=== PATIENT | female | born 1975 | race African-American/Black ===

== ENCOUNTER → 2019-02-28 | Day surgery (SDC) | payer OTHER ==
--- NOTE | 2019-02-26 16:09 | Diagnostic Imaging Report ---
EXAMINATION: PA and lateral views of the chest. COMPARISON: None CLINICAL HISTORY: Preoperative study for toe surgery DISCUSSION: Lines/tubes: None. Lungs: The lungs are well inflated and clear. There is no evidence of pneumonia or pulmonary edema. Pleura: There is no pleural effusion or pneumothorax. Heart and mediastinum: The cardiomediastinal silhouette is normal. Bones and soft tissues: No acute bony abnormalities. Mild scoliotic curvature of the thoracolumbar spine. IMPRESSION: No acute cardiopulmonary abnormalities. Signed by: Dr. Cedrick Borrego M.D. on 02/26/2019 4:06 PM
[~2019-02-28] MED LIST: ANTIBIOTIC UNKNOWN PO; BUPIVACAINE HCL 0.5% INJ 30 ML VIAL INJ ONE; CEFAZOLIN SOD 1 GM/NS 50ML 50 ML IV ONE; DEXAMETHASONE SOD PHOS INJ 4 MG/ML VIAL ONE; FENTANYL CITRATE/PF 100MCG/2 ML INJ ONE; LATUDA40 MG PO; LIDOCAINE HCL 2% LOCAL INJ 5 ML SDV VIAL INJ ONE; MIDAZOLAM HCL 2 MG/2 ML VIAL ONE; NAPROXEN250 MG PO; ONDANSETRON HCL INJ 2MG/ML 2ML 2 MG/ML VIAL ONE; PROPOFOL IV EMULSION 10 MG/ML 20 ML VIAL ONE; PROZAC20 MG PO; SEVOFLURANE INHAL SOLN 250 ML PEN BTL ONE
--- OUTSIDE RECORDS SUMMARY | 2019-02-28 05:09 | XMS REPORT | Clinical Summary ---
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 hepatic coma (HCC), 19 weeks gestation of , Bipolar affective disorder, remission status unspecified (HCC), Immunity status testing, Cancer screening, Smoking Active VITS #93/IRON Take by 0 FUM/FA ( FORMULA mouth. ORAL)Indications: Chronic hepatitis C without hepatic coma (HCC), 19 weeks gestation of , Bipolar affective disorder, remission status unspecified (HCC), Immunity status testing, Cancer screening, Smoking Active Problems Problem Noted Date Screening for cancer 11/01/2017 Hepatitis C Overview: Diagnosed in 2017 Overview: 19 weeks Bipolar affective disorder Smoking Comments Yes Encounters Care Team Description Date Type Specialty Pineda Payan NP Chronic hepatitis C without hepatic coma (HCC) (Primary Dx) 07/31/2018 Orders Only Hepatology after 02/27/2018 Family History Medical History Relation Name Comments Unremarkable Father Diabetes Maternal Grandmother Unremarkable Mother Relation Name Status Comments Father Maternal Grandmother Mother Social History Date Tobacco Use Types Packs/Day Years Used Current Every Day Smoker Cigarettes Smokeless Tobacco: Current User Tobacco Cessation: Ready to Quit: Yes; Counseling Given: Yes Comments: She reports that she started smoking at the age of 24, currently, she smokes 5 cigarettes daily Alcohol Use Drinks/Week oz/Week Comments No Comments Yes Sex Assigned at Date Recorded Not on file Industry Job Start Date Occupation Not on file Not on file Not on file Travel End Travel History Travel Start No recent travel history available. Last Filed Vital Signs Not on file Plan of Treatment Health Maintenance Due Date Last Done Comments INFLUENZA VACCINE 06/05/2018 Results Not on fileafter 02/27/2018 Insurance Payer Benefit Subscriber ID Type Phone Address Plan / Group MEDICAID - MEDICAID [facility] xxxxxxxxx Medicaid CARE COMM STAR Contracted PLAN
--- OUTSIDE RECORDS SUMMARY | 2019-02-28 05:09 | XMS REPORT | Clinical Summary ---
Author Author [facility] Organization [facility] Address Unknown Phone Unavailable Care Team Providers Care Nuclear Medicine Tech Name Role Phone Dianelys Goldsmith MD PCP Allergies No Known Allergies Medications End Date Status Medication Sig Dispensed Refills Start Date Active lurasidone (LATUDA) 20 mg Take one 30 tablet 2 Tab tabletIndications: tablet by 7 Bipolar 1 disorder mouth at dinner time with food.. Active SUMAtriptan (IMITREX) 50 Take 1 tablet 30 tablet 0 mg tabletIndications: by mouth at 9 Migraine without status onset of migrainosus, not headache. intractable, unspecified Repeat after migraine type 2 hours if needed. Maximum 200mg/24 hours.. Active cyclobenzaprine Take 1 tablet 30 tablet 0 (FLEXERIL) 10 mg by mouth 3 9 tabletIndications: Acute times daily right-sided low back pain as needed for without sciatica Muscle Spasms. Active FLUoxetine (PROZAC) 20 mg Take 61 mg by 0 capsule mouth daily. Active nicotine (NICODERM CQ) 14 Apply 1 Patch 28 Patch 0 mg/24 hr to skin as 9 patchIndications: Tobacco directed use disorder every 24 hours. Active fluticasone propionate Use 1 Hepler 16 g 1 (FLONASE ALLERGY RELIEF) in each 9 50 mcg/actuation nasal nostril sprayIndications: daily. Allergic rhinitis due to other allergic trigger, unspecified seasonality Active ibuprofen (MOTRIN) 600 mg Take 1 tablet 30 tablet 0 tabletIndications: Toe by mouth 9 deformity, left every 8 hours as needed for Pain. 09/15/2018 metroNIDAZOLE (FLAGYL) Take 1 tablet 14 tablet 0 500 mg tabletIndications: by mouth 2 9 Vaginal discharge times daily for 7 days. 01/24/2019 Discontinued triamcinolone (KENALOG) Apply to 80 g 0 0.025 % affected area 9 ointmentIndications: 2 times Dermatitis daily. 09/15/2018 benzonatate (TESSALON Take 1 20 capsule 0 PERLES) 100 mg capsule by 9 capsuleIndications: Acute mouth 3 times URI daily as needed for up to 7 days for Cough. 01/11/2019 Discontinued amitriptyline (ELAVIL) 10 Take 1 tablet 30 tablet 1 mg tabletIndications: by mouth at 9 Migraine without status bedtime migrainosus, not nightly. intractable, unspecified migraine type 02/16/2019 Discontinued ibuprofen (MOTRIN) 600 mg Take 1 tablet 30 tablet 0 tabletIndications: Acute by mouth 9 right-sided low back pain every 8 hours without sciatica as needed for Pain. 01/24/2019 Discontinued amitriptyline (ELAVIL) 10 Take 1 tablet 60 tablet 1 mg tabletIndications: by mouth at 9 Migraine without status bedtime migrainosus, not nightly. intractable, unspecified migraine type 02/15/2019 nitrofurantoin Take 1 14 capsule 0 (MACRODANTIN) 100 mg capsule by 9 capsuleIndications: Acute mouth 2 times cystitis without daily for 7 hematuria days. Active Problems Problem Noted Date Chronic hepatitis C without hepatic coma 02/08/2019 Tinea pedis, right 09/26/2016 Somnolence 11/26/2015 Homelessness 02/07/2015 Overview: Resident at [facility] BMI 29.0-29.9,adult 02/07/2015 Overview: Counseled on diet and encouraged weight management and adding exercise to daily activities as tolerated. Depression screening 02/07/2015 Overview: PHQ9-3, denies suicidal and homicidal ideations Bipolar 1 disorder 01/13/2015 Acne 01/08/2015 Intertrigo 01/08/2015 Anxiety disorder 01/05/2015 Opioid abuse 01/05/2015 Cocaine abuse 01/05/2015 Alcohol abuse 01/05/2015 Smoking 09/11/2012 Depression 12/15/2011 Encounters Care Team Description Date Type Specialty Alondra Lund, Toe deformity, left (Primary Dx); Encounter for smoking cessation counseling; Chronic hepatitis C without hepatic coma; Allergic rhinitis due to other allergic trigger, unspecified seasonality 02/16/2019 Office Visit Family Practice Crystal Leggett, Counselor Encounter for tobacco use cessation counseling (Primary Dx) 02/08/2019 Office Visit Psychology Kari Smith NP Acute cystitis without hematuria (Primary Dx); Screening for HIV (human immunodeficiency virus); Urinary frequency; Tobacco use disorder; Encounter to discuss test results; Chronic hepatitis C without hepatic coma; Homelessness 02/08/2019 Office Visit Family Practice 02/08/2019 Travel Kari Smith NP Chronic hepatitis C without hepatic coma (Primary Dx); Homelessness 01/24/2019 Office Visit Family Practice 01/24/2019 Alondra Dyer Resident Refill Request 01/11/2019 [facility] Prerna Patel Refill Request 01/05/2019 Telephone Family Practice Beronica Grullon Physician Acute right-sided low back pain without sciatica (Primary Dx) 10/19/2018 Emergency Emergency Medicine 10/19/2018 Alondra Dyer Resident Migraine without status migrainosus, not intractable, unspecified migraine type (Primary Dx); Declined smoking cessation; Encounter for screening mammogram for malignant neoplasm of breast 10/05/2018 Office Visit Family Practice Cynthia Cordova MD Vaginal discharge (Primary Dx); Acute URI; Dermatitis 09/08/2018 Office Visit Family Practice 09/08/2018 Jono Goyal NP Hepatitis C virus infection without hepatic coma, unspecified chronicity (Primary Dx) 04/27/2018 Office Visit Family Practice Tommy Dacosta Appointment Related Questions (reminder) 04/26/2018 Telephone Family Practice after 02/27/2018 Immunizations Name Administration Dates Next Due Depo-provera 150mg Inj 07/02/2015, 01/11/2012 Influenza Vaccine 06/16/2015, 07/17/2012, 08/12/2011 PPD 11/04/2016, 08/08/2015 Tdap Tetanus, diphtheria, 07/17/2012, 08/12/2011 (Deferred: acellular pertussis Unavailable-Patient to return for vaccine later) Vaccine Twinrix-HEP A&b 01/24/2019 Family History Medical History Relation Name Comments Diabetes Maternal Grandmother Hypertension Maternal Grandmother Other Maternal Glaucoma Grandmother Relation Name Status Comments Daughter Alive Daughter Alive Daughter Alive Father Maternal Grandfather Maternal Grandmother Mother Paternal Grandfather Paternal Grandmother Sister Alive Son Alive Social History Date Tobacco Use Types Packs/Day Years Used Current Some Day Smoker Cigarettes 0.5 20 Smokeless Tobacco: Never Used Tobacco Cessation: Ready to Quit: No; Counseling Given: Yes Comments: Has started and stopped several times Drinks/Week oz/Week Comments Alcohol Use 48 Glasses of wine 28.8 Yes Sex Assigned at Date Recorded Not on file Industry Job Start Date Occupation Not on file Not on file Not on file Travel End Travel History Travel Start No recent travel history available. Last Filed Vital Signs Reading Time Taken Comments Vital Sign 117/60 02/16/2019 2:23 PM CDT Blood Pressure 80 02/16/2019 2:23 PM CDT Pulse 36.7 C (98 F) 02/16/2019 2:23 PM CDT Temperature 20 02/16/2019 2:23 PM CDT Respiratory Rate 99% 10/19/2018 3:28 PM [employer] Oxygen Saturation - - Inhaled Oxygen Concentration 66.2 kg (146 lb) 02/16/2019 2:23 PM CDT Weight 170.2 cm (5' 7") 02/16/2019 2:23 PM CDT Height 22.87 02/16/2019 2:23 PM CDT Body Mass Index Plan of Treatment Care Team Description Date Type Specialty Kari Smith NP [address] [place] [address] Follow Up / Medication 03/01/2019 Office Visit Family Practice Health Maintenance Due Date Last Done Comments Cervical Cancer Scrn (3 10/19/2016 10/19/2013 (Previously completed - Yrs) External), 01/11/2012 Breast Cancer Scrn 2017 (Yearly) IMM Influenza Seasonal 06/05/2019 Oct to November (>/=19 yrs) Procedures Comments Procedure Name Priority Date/Time Associated Diagnosis POC URINE -[facility] Routine 02/08/2019 Urinary frequency MANUALLY ENTERED POC HIV RAPID 1/2-[facility] Routine 02/08/2019 Screening for HIV (human MANUALLY ENTERED immunodeficiency virus) POC URINE DIPSTICK W/O Routine 02/08/2019 Urinary frequency MICRO-FQHC MANUALLY ENTERED THYROID CASCADE PROFILE Routine 01/24/2019 Chronic hepatitis C 9:18 AM CDT without hepatic coma LIPID PANEL Routine 01/24/2019 Chronic hepatitis C 9:18 AM CDT without hepatic coma HEMOGLOBIN A1C Routine 01/24/2019 Chronic hepatitis C 9:18 AM CDT without hepatic coma PROTHROMBIN AND PARTIAL Routine 01/24/2019 Chronic hepatitis C THROMBOPLASTIN TIMES 9:18 AM CDT without hepatic coma COMPREHENSIVE METABOLIC Routine 01/24/2019 Chronic hepatitis C PANEL(14) 9:18 AM CDT without hepatic coma CBC WITH Routine 01/24/2019 Chronic hepatitis C DIFFERENTIAL/PLATELET 9:18 AM CDT without hepatic coma [id number] 7+ALC-UNBUND Routine 01/24/2019 Chronic hepatitis C 9:18 AM CDT without hepatic coma HCV RT-PCR QUANT Routine 01/24/2019 Chronic hepatitis C (NON-GRAPH) 9:18 AM CDT without hepatic coma HEPATITIS C VIRUS (HCV) Routine 01/24/2019 Chronic hepatitis C GENOTYPING, NONREFLEX 9:18 AM CDT without hepatic coma HEPATITIS C VIRUS (HCV) Routine 01/24/2019 Chronic hepatitis C FIBROSURE 9:18 AM CDT without hepatic coma HCV ANTIBODY Routine 01/24/2019 Chronic hepatitis C 9:18 AM CDT without hepatic coma HBSAG SCREEN Routine 01/24/2019 Chronic hepatitis C 9:18 AM CDT without hepatic coma HEP B SURFACE AB Routine 01/24/2019 Chronic hepatitis C 9:18 AM CDT without hepatic coma HEP B CORE AB,TOT Routine 01/24/2019 Chronic hepatitis C 9:18 AM CDT without hepatic coma AFP,SERUM,TUMOR MARKER Routine 01/24/2019 Chronic hepatitis C 9:18 AM CDT without hepatic coma GENITAL WET MOUNT WITH Routine 09/08/2018 Vaginal discharge AURELIA 12:32 PM [employer] AURELIA STAIN Routine 09/08/2018 Vaginal discharge 12:32 PM [employer]STE [employer] CHLAM/GC DNA AMPLI Routine 09/08/2018 Vaginal discharge 12:20 PM [employer] after 02/27/2018 Results * POC URINE DIPSTICK W/O MICRO-FQHC MANUALLY ENTERED (02/08/2019) [facility] Blood POC Neg Urobilinogen 4 POC Bilirubin POC Neg Protein POC 30 Nitrate POC Pos Ketone POC Neg Glucose POC Neg Ph POC 6 5 Spec [place] 1.015 POC Leukocyte POC Neg Specimen Urine * POC URINE -FQHC MANUALLY ENTERED (02/08/2019) [facility] POC Negative Specimen * POC HIV RAPID 1/2-FQHC MANUALLY ENTERED (02/08/2019) [facility] Rapid HIV 1/2 Negative Specimen * COMPREHENSIVE METABOLIC PANEL(14) (01/24/2019 9:18 AM CDT) [facility] Glucose, Serum 82 65 - 99 mg/dL [facility] 01 Comment: Specimen received in contact with cells. No visible hemolysis present. However GLUC may be decreased and K increased. Clinical correlation indicated. BUN 13 6 - 24 mg/dL [facility] 01 Creatinine, 0.70 0.57 - 1.00 mg/dL [facility] 01 Serum eGFR If 108 >59 mL/min/1.73 [facility] 01 NonAfricn Am eGFR If Africn 124 >59 mL/min/1.73 [facility] 01 Am BUN/Creatinine 19 9 - 23 [facility] 01 Ratio Sodium, Serum 139 134 - 144 mmol/L [facility] 01 Potassium, 4.3 3.5 - 5.2 mmol/L [facility] 01 Serum Comment: Specimen received in contact with cells. No visible hemolysis present. However GLUC may be decreased and K increased. Clinical correlation indicated. Chloride, Serum 105 96 - 106 mmol/L [facility] 01 Carbon Dioxide, 22 20 - 29 mmol/L [facility] 01 Total Calcium, Serum 8.3 (L) 8.7 - 10.2 mg/dL [facility] 01 Protein, Total, 7.1 6.0 - 8.5 g/dL [facility] 01 Serum Albumin, Serum 4.0 3.5 - 5.5 g/dL [facility] 01 Globulin, Total 3.1 1.5 - 4.5 g/dL [facility] 01 A/G Ratio 1.3 1.2 - 2.2 [facility] 01 Bilirubin, <0.2 0.0 - 1.2 mg/dL [facility] 01 Total Alkaline 83 39 - 117 IU/L [facility] 01 Phosphatase, S AST (SGOT) 23 0 - 40 IU/L [facility] 01 ALT (SGPT) 22 0 - 32 IU/L [facility] 01 Specimen Narrative Performed At Performed at: - [facility] [address] [place], [place] [id number] Advanced Manufacturing Associate: Reji Ma MD, Phone:[phone] Performing Organization Address [facility] Phone Number [facility] [address] [place] [address] [facility] 01 * HCV RT-PCR QUANT (NON-GRAPH) (01/24/2019 9:18 AM CDT) Hepatitis C 475,000 IU/mL [facility] 02 Quantitation HCV log10 5.677 log10 IU/mL [facility] 02 Test CommentComment: The [facility] 02 Information: quantitative range of this assay is 15 IU/mL to 100 million IU/mL. Specimen Narrative Performed At Performed at: [facility] [address] [place], [place] [id number] Advanced Manufacturing Associate: Kelsy Salomon MD, Phone:[phone] Performing Organization Address [facility] Phone Number [facility] [address] [place] [address] 145 [facility] 02 * HEP B CORE AB,TOT (01/24/2019 9:18 AM CDT) Hep B Core Ab, Negative Negative [facility] 01 Tot Specimen Narrative Performed At Performed at: [facility] [address] [place], [place] [id number] Advanced Manufacturing Associate: Reji Ma MD, Phone:[phone] Performing Organization Address [facility] Phone Number [facility] [address] [place], [place] [phone] [facility] 01 * AFP,SERUM,TUMOR MARKER (01/24/2019 9:18 AM CDT) AFP,Serum,Tumor 1.1 0.0 - 8.3 ng/mL [facility] 01 Marker Comment: [facility] Electrochemiluminescence Immunoassay (ECLIA) Values obtained with different assay methods or kits cannot be used interchangeably.Results cannot be interpreted as absolute evidence of the presence or absence of malignant disease. This test is not interpretable in females. Specimen Narrative Performed At Performed at:[address] [place] [address] [facility] [address] [place], [place] [id number] Advanced Manufacturing Associate: Reji Ma MD, Phone:[phone] Performing Organization Address [facility] Phone Number [facility] [address] [place], [place] [phone] [facility] 01 * HCV ANTIBODY (01/24/2019 9:18 AM CDT) Hep C Virus Ab >11.0 (H) 0.0 - 0.9 s/co ratio [facility] 01 Comment: Negative: < 0.8 Indeterminate: 0.8 - 0.9 Positive: > 0.9 The CDC recommends that a positive HCV antibody result be followed up with a HCV Nucleic Acid Amplification test (674363). Specimen Narrative Performed At Performed at:[address] [place] [address] [facility] [place], [id number] Advanced Manufacturing Associate: Reji Ma MD, Phone:[phone] Performing Organization Address [facility] Phone Number [facility] [address] [place], [place] [phone] [facility] 01 * PROTHROMBIN AND PARTIAL THROMBOPLASTIN TIMES (01/24/2019 9:18 AM CDT) INR 1.0 0.8 - 1.2 [facility] 01 Comment: Reference interval is for non-anticoagulated patients. Suggested INR therapeutic range for Vitamin K antagonist therapy: Standard Dose (moderate intensity therapeutic range): 2.0 - 3.0 Higher intensity therapeutic range 2.5 - 3.5 Prothrombin 10.4 9.1 - 12.0 sec [facility] 01 Time APTT 36 (H) 24 - 33 sec [facility] 01 Comment: This test has not been validated for monitoring unfractionated heparin therapy. aPTT-based therapeutic ranges for unfractionated heparin therapy have not been established. For general guidelines on Heparin monitoring, refer to the [facility] Directory of Services. Specimen Blood Narrative Performed At Performed at:01 - [facility] [place] [facility] [address] [place], [id number] Advanced Manufacturing Associate: Reji Ma MD, Phone:[phone] Performing Organization Address City/State/Zipcode Phone Number [facility] [address] [facility] [place] [address] 145 [facility] 01 * CBC WITH DIFFERENTIAL/PLATELET (01/24/2019 9:18 AM CDT) WBC 3.9 3.4 - 10.8 x10E3/uL [facility] 01 RBC 4.29 3.77 - 5.28 x10E6/uL [facility] 01 Hemoglobin 12.1 11.1 - 15.9 g/dL [facility] 01 Hematocrit 37.3 34.0 - 46.6 % [facility] 01 MCV 87 79 - 97 fL [facility] 01 MCH 28.2 26.6 - 33.0 pg [facility] 01 MCHC 32.4 31.5 - 35.7 g/dL [facility] 01 RDW 15.1 12.3 - 15.4 % [facility] 01 Platelets 333Comment: 150 - 450 x10E3/uL [facility] 01 Please note reference interval change Neutrophils 43 Not Estab. % [facility] 01 Lymphs 46 Not Estab. % [facility] 01 Monocytes 10 Not Estab. % [facility] 01 Eos 1 Not Estab. % [facility] 01 Basos 0 Not Estab. % [facility] 01 Neutrophils 1.7 1.4 - 7.0 x10E3/uL [facility] 01 (Absolute) Lymphs 1.8 0.7 - 3.1 x10E3/uL [facility] 01 (Absolute) Monocytes(Absol 0.4 0.1 - 0.9 x10E3/uL [facility] 01 nicolas) Eos (Absolute) 0.0 0.0 - 0.4 x10E3/uL [facility] 01 Baso (Absolute) 0.0 0.0 - 0.2 x10E3/uL [facility] 01 Immature 0 Not Estab. % [facility] 01 Granulocytes Immature Grans 0.0 0.0 - 0.1 x10E3/uL [facility] 01 (Abs) Specimen Blood Narrative Performed At Performed at:[facility] [place] [facility] [address] [place], [place] [id number] Advanced Manufacturing Associate: Reji Ma MD, Phone:[phone] Performing Organization Address [facility] Phone Number [facility] [address] [place] [address] 145 [facility] 01 * HEP B SURFACE AB (01/24/2019 9:18 AM CDT) [facility] Hep B Surface Reactive [facility] 01 Ab, Qual Comment: No n Reactive: Inconsistent with immunity, less than 10 mIU/mL Re active: Consistent with immunity, grea ter than 9.9 mIU/mL Specimen Blood Narrative Performed At Performed at: [facility] [place] [facility] [address] [place], [place] [id number] Advanced Manufacturing Associate: Reji Ma MD, Phone:[phone] Performing Organization Address [facility] Phone Number [facility] [address] [place] [address] 145 [facility] 01 * HBSAG SCREEN (01/24/2019 9:18 AM CDT) [facility] HBsAg Screen Negative Negative [facility] 01 Specimen Narrative Performed At Performed at:[facility] [address] [place], [place] [id number] Advanced Manufacturing Associate: Reji Ma MD, Phone:[phone] Performing Organization Address [facility] Phone Number [facility] [address] [place] [address] 145 [facility] 01 * HEMOGLOBIN A1C (01/24/2019 9:18 AM CDT) [facility] Hemoglobin A1c 5.5 4.8 - 5.6 % [facility] 01 Comment: Prediabetes: 5.7 - 6.4 Diabetes: >6.4 Glycemic control for adults with diabetes: <7.0 Specimen Blood Narrative Performed At Performed at:[facility] [place], [id number] Advanced Manufacturing Associate: Reji Ma MD, Phone:[phone] Performing Organization Address [facility] Phone Number [facility] [address] [place] [address] 145 [facility] 01 * LIPID PANEL (01/24/2019 9:18 AM CDT) [facility] Cholestrol, 141 100 - 199 mg/dL [facility] 01 Total Triglyceride 66 0 - 149 mg/dL [facility] 01 HDL 63 >39 mg/dL [facility] 01 VLDL Cholestrol 13 5 - 40 mg/dL [facility] 01 Calc LDL Cholestrol 65 0 - 99 mg/dL [facility] 01 Calc Specimen Narrative Performed At Performed at: [facility] [place], [id number] Advanced Manufacturing Associate: Reji Ma MD, Phone:[phone] Performing Organization Address [facility] Phone Number [facility] [address] [place] [address] 145 [facility] 01 * THYROID CASCADE PROFILE (01/24/2019 9:18 AM CDT) [facility] TSH 0.863 0.450 - 4.500 uIU/mL [facility] 01 Specimen Blood Narrative Performed At Performed at:[facility] [place], [id number] Advanced Manufacturing Associate: Reji Ma MD, Phone:[phone] Performing Organization Address [facility] Phone Number [facility] [address] [place] [address] 145 [facility] 01 * HEPATITIS C VIRUS (HCV) GENOTYPING, NONREFLEX (01/24/2019 9:18 AM CDT) [facility] Hepatitis C 1b [facility] 02 Genotype Please note: Comment [facility] 02 Comment: This test was developed and its performance characteristics determined by [facility].It has not been cleared or approved by the U.S. Food and Drug Administration. The FDA has determined that such clearance or approval is not necessary. This test is used for clinical purposes.It should not be regarded as investigational or for research. Specimen Blood Narrative Performed At Performed at:02 - [facility] [place] [facility] [address] [place], [id number] Advanced Manufacturing Associate: Kelsy Salomon MD, Phone:[phone] Performing Organization Address City/State/Zipcode Phone Number [facility] [address] [facility] [place] [address] 145 [facility] 02 * HEPATITIS C VIRUS (HCV) FIBROSURE (01/24/2019 9:18 AM CDT) Fibrosis Score 0.02 0.00 - 0.21 [facility] 02 Fibrosis Stage CommentComment: [facility] 02 F0 - No fibrosis Necroinflammat 0.08 0.00 - 0.17 [facility] 02 Activity Score Necroinflammat A0-No activity [facility] 02 Activity Grade Alpha 179 110 - 276 mg/dL [facility] 02 2-Macroglobulin s, Qn Haptoglobin 172 34 - 200 mg/dL [facility] 02 Apolipoprotein 154 116 - 209 mg/dL [facility] 02 A-1 Bilirubin, <0.1 0.0 - 1.2 mg/dL [facility] 02 Total GGT 19 0 - 60 IU/L [facility] 02 ALT (SGPT) P5P 26 0 - 40 IU/L [facility] 02 Interpretations Comment [facility] 02 : Comment: Quantitative results of 6 biochemical tests are analyzed using a computational algorithm to provide a quantitative surrogate marker (0.0-1.0) for liver fibrosis (METAVIR F0-F4) and for necroinflammatory activity (METAVIR A0-A3). Fibrosis Comment [facility] 02 Scoring: Comment: <0.21=Stage F0 - No fibrosis 0.21 - 0.27=Stage F0 - F1 0.27 - 0.31=Stage F1 - Portal fibrosis 0.31 - 0.48=Stage F1 - F2 0.48 - 0.58=Stage F2 - Bridging fibrosis with few septa 0.58 - 0.72=Stage F3 - Bridging fibrosis with many septa 0.72 - 0.74=Stage F3 - F4 >0.74=Stage F4 - Cirrhosis Necroinflamm Comment [facility] 02 Activity Comment: Scoring: <0.17=Grade A0 - No Activity 0.17 - 0.29=Grade A0 - A1 0.29 - 0.36=Grade A1 - Minimal activity 0.36 - 0.52=Grade A1 - A2 0.52 - 0.60=Grade A2 - Moderate activity 0.60 - 0.62=Grade A2 - A3 >0.62=Grade A3 - Severe activity Limitations: Comment [facility] 02 Comment: The negative predictive value of a Fibrotest score <0.31 (absence of clinically significant fibrosis) was 85% when compared to liver biopsy in 1,270 HCV infected patients with a 38% prevalence of significant liver fibrosis (F2, 3 or 4). The positive predictive value of a Fibro- test score >0.48 (F2, 3, 4) was 61% in that same patient cohort. HCV FibroSURE is not recommended in patients with Gilbert Disease, acute hemolysis (e.g. HCV ribavirin therapy mediated hemolysis) acute hepa- titis of the liver, extra-hepatic cholestasis, transplant patients, and/or renal insufficiency patients.Any of these clinical situations may lead to inaccurate quantitative predictions of fibrosis and necroinflammatory activity in the liver. Comment: Comment [facility] 02 Comment: This test was developed and its performance characteristics determined by [facility].It has not been cleared or approved by the Food and Drug Administration.The FDA has determined that such clearance or approval is not necessary. For questions regarding this report please contact customer service at . Specimen Narrative Performed At Performed at:02 - [facility] [address] [place], [id number] Advanced Manufacturing Associate: Kelsy Salomon MD, Phone:[phone] Performing Organization Address City/State/Zipcode Phone Number [facility] [address] [facility], [place] [address] 145 [facility] * [id number] 7+ALC-UNBUND (01/24/2019 9:18 AM CDT) Amphetamines, NegativeComment: Amphetamine Vsxrdd=8464 ng/mL [facility] 01 Urine test includes Amphetamine and Methamphetamine. Barbiturate Negative Lwszhj=215 ng/mL [facility] 01 Benzodiazepines Negative Fyiczs=203 ng/mL [facility] 01 Cannabinoid Negative Cutoff=50 ng/mL [facility] 01 Cocaine Negative Tevrdl=471 ng/mL [facility] 01 (Metab.) Opiates NegativeComment: Opiate test Gmnkdu=138 ng/mL [facility] 01 includes Codeine and Morphine only. Phencyclidine Negative Cutoff=25 ng/mL [facility] 01 Ethanol, Urine Negative Cutoff=0.020 % [facility] 01 Specimen Narrative Performed At Performed at:01 - [facility] [place] [facility] [address] [place], [id number] Advanced Manufacturing Associate: Reji Ma MD, Phone:[phone] Performing Organization Address [facility] Phone Number [facility] [address] [place] [address] 145 [facility] 01 * WET MOUNT (09/08/2018 12:32 PM [employer]) Spec Vaginal [facility] Description MICROBIOLOGY Order Comments None [facility] MICROBIOLOGY Exam WBC's seen [facility] Epithelial cells MICROBIOLOGY Bacteria present Clue cells present No Trichomonas seen No yeast seen Report Status Final 09/08/2018 [facility] MICROBIOLOGY Specimen Genital, vaginal - Vaginal Performing Organization Address [facility] [place] Phone Number C-samYS [facility] MICROBIOLOGY * AURELIA STAIN (09/08/2018 12:32 PM [employer]) Spec Vaginal [facility] Description MICROBIOLOGY Order Comments None [facility] MICROBIOLOGY Direct Exam No fungus seen by AURELIA [facility] MICROBIOLOGY Report Status Final 09/08/2018 [facility] MICROBIOLOGY Specimen Genital, vaginal - Vaginal Performing Organization Address [facility] [place] Phone Number MISYS [facility] MICROBIOLOGY * CHLAM/GC DNA AMPLI (09/08/2018 12:20 PM [employer]) Chlamydia trach Negative NEG [facility] DIAGNOSTIC IMMUNOLOGY N gonorrhoeae Negative NEG BT DIAGNOSTIC Comment: IMMUNOLOGY This test utilizes [employer] Aptima Combo 2 Assay for target amplification of rRNA for the qualitative detection of Chlamydia trachomatis and Neisseria gonorrhea. Spec Endovervical [facility] Description MAIN-STATION 2 Specimen Other (Specify in Comments) - Vaginal Swab Performing Organization Address [facility] [place] Phone Number C-samYS BT DIAGNOSTIC IMMUNOLOGY [facility] MAIN-STATION 2 after 02/27/2018 Insurance Type Payer Benefit Subscriber ID Effective Phone Address Plan / Dates Group [facility] xxxxxxxxx 2018-[address] [facility] [id number] [place] [address] Advance Directives Date Inactivated Comments Code Status Date Activated 01/13/2015 4:30 PM Full Code 01/05/2015 3:18 AM 10/20/2010 5:31 PM Full Code 10/17/2010 1:51 AM 10/17/2010 1:51 AM Full Code 10/16/2010 3:49 PM
--- OUTSIDE RECORDS SUMMARY | 2019-02-28 05:10 | XMS REPORT | Continuity of Care Document ---
Author Author [facility] Interface Address Unknown Phone Unavailable Problems Problem Status Onset Date Classification Date Reported Comments Source Chronic hepatitis C without hepatic coma Active 02/08/2019 02/12/2019 [facility] Tinea pedis, right Active 09/26/2016 02/12/2019 [facility] Somnolence Active 11/26/2015 02/12/2019 [facility] Homelessness Active 02/07/2015 02/12/2019 [facility] BMI 29.0-29.9,adult Active 02/07/2015 02/12/2019 [facility] Depression screening Active 02/07/2015 02/12/2019 [facility] Bipolar 1 disorder Active 01/13/2015 02/12/2019 [facility] Acne Active 01/08/2015 02/12/2019 [facility] Intertrigo Active 01/08/2015 02/12/2019 [facility] Anxiety disorder Active 01/05/2015 02/12/2019 [facility] Opioid abuse Active 01/05/2015 02/12/2019 [facility] Cocaine abuse Active 01/05/2015 02/12/2019 [facility] Alcohol abuse Active 01/05/2015 02/12/2019 [facility] Discharge Diagnosis: Suicidal ideations 11/19/2014 11/21/2014 [facility] Discharge Diagnosis: Illicit Drug Use 11/19/2014 11/21/2014 [facility] Discharge Diagnosis: Overdose 11/19/2014 11/21/2014 [facility] SUICIDAL IDEATION Active 11/18/2014 [facility] Smoking Active 09/11/2012 02/12/2019 [facility] Depression Active 12/15/2011 02/12/2019 [facility] Acute URI Active 02/12/2019 [facility] Vaginal discharge Active 02/12/2019 [facility] Dermatitis Active 02/12/2019 [facility] Hepatitis C virus infection without hepatic coma, unspecified chronicity Active 02/12/2019 [facility] PMDD Active 11/29/2018 [facility] Viral upper respiratory tract infection Active 09/08/2018 [facility] Refused influenza vaccine Active 09/08/2018 [facility] Migraine without status migrainosus, not intractable, unspecified migraine type Active 02/12/2019 [facility] Declined smoking cessation Active 02/12/2019 [facility] Encounter for screening mammogram for malignant neoplasm of breast Active 02/12/2019 [facility] Acute right-sided low back pain without sciatica Active 02/12/2019 [facility] Encounter for tobacco use cessation counseling Active 02/12/2019 [facility] Screening for HIV Active 02/12/2019 [facility] Urinary frequency Active 02/12/2019 [facility] Tobacco use disorder Active 02/12/2019 [facility] Acute cystitis without hematuria Active 02/12/2019 [facility] Encounter to discuss test results Active 02/12/2019 [facility] Medications Medication Details Route Status Patient Instructions Ordering Provider Order Date Source nicotine (NICODERM CQ) 14 mg/24 hr patch Apply 1 Patch to skin as directed every 24 hours. Transdermal Active 02/08/2019 [facility] nitrofurantoin (MACRODANTIN) 100 mg capsule Take 1 capsule by mouth 2 times daily for 7 days. Oral Active 02/08/2019 [facility] amitriptyline (ELAVIL) 10 mg tablet Take 1 tablet by mouth at bedtime nightly. Oral No Longer Active 01/11/2019 [facility] ibuprofen (MOTRIN) 600 mg tablet Take 1 tablet by mouth every 8 hours as needed for Pain. Oral Active 10/19/2018 [facility] cyclobenzaprine (FLEXERIL) 10 mg tablet Take 1 tablet by mouth 3 times daily as needed for Muscle Spasms. Oral Active 10/19/2018 [facility] SUMAtriptan (IMITREX) 50 mg tablet Take 1 tablet by mouth at onset of headache. Repeat after 2 hours if needed. Maximum 200mg/24 hours.. Active 10/05/2018 [facility] amitriptyline (ELAVIL) 10 mg tablet Take 1 tablet by mouth at bedtime nightly. Oral No Longer Active 10/05/2018 [facility] SUMAtriptan (IMITREX) 50 mg tablet Take 1 tablet by mouth at onset of headache. Repeat after 2 hours if needed. Maximum 200mg/24 hours.. Active 10/05/2018 [facility] metroNIDAZOLE (FLAGYL) 500 mg tablet Take 1 tablet by mouth 2 times daily for 7 days. Oral No Longer Active 09/08/2018 [facility] triamcinolone (KENALOG) 0.025 % ointment Apply to affected area 2 times daily. Topical No Longer Active 09/08/2018 [facility] benzonatate (TESSALON PERLES) 100 mg capsule Take 1 capsule by mouth 3 times daily as needed for up to 7 days for Cough. Oral No Longer Active 09/08/2018 [facility] metroNIDAZOLE (FLAGYL) 500 mg tablet Take 1 tablet by mouth 2 times daily for 7 days. Oral No Longer Active 09/08/2018 [facility] benzonatate (TESSALON PERLES) 100 mg capsule Take 1 capsule by mouth 3 times daily as needed for up to 7 days for Cough. Oral No Longer Active 09/08/2018 [facility] benzonatate (TESSALON PERLES) 100 mg capsule Take 1 capsule by mouth 3 times daily as needed for up to 7 days for Cough. Oral No Longer Active 10/13/2017 [facility] lurasidone (LATUDA) 20 mg Tab tablet Take one tablet by mouth at dinner time with food.. Active 11/11/2016 [facility] lurasidone (LATUDA) 20 mg Tab tablet Take one tablet by mouth at dinner time with food.. Active 11/11/2016 [facility] acetaminophen (TYLENOL) 500 mg tablet Take 1 tablet by mouth every 6 hours as needed for Pain. Oral No Longer Active 11/08/2016 [facility] clotrimazole (LOTRIMIN) 1 % external solution Apply 1-2 drops to affected nails 2 times a day. Use a nail file to keep nails thin. Treatment may take up to 1 year. No Longer Active 09/26/2016 [facility] vitamin tablet Take 1 tablet by mouth daily Pharmacist may select any Vitamin product covered on the patient's insurance for new rxs and refills. Oral No Longer Active 09/14/2016 [facility] desogestrel-ethinyl estradiol (VELIVET) 0.1/.125/.15-25 mg-mcg tablet Take 1 tablet by mouth daily. Oral No Longer Active 09/24/2015 [facility] FLUoxetine (PROZAC) 20 mg capsule Take 61 mg by mouth daily. Oral Active [facility] Allergies, Adverse Reactions, Alerts Substance Category Reaction Severity Reaction type Status Date Reported Comments Source Immunizations Immunization Date Given Site Status Last Updated Comments Source Twinrix-HEP A&b 01/24/2019 completed Gonzalez [facility] PPD 11/04/2016 completed Bj [facility] PPD 08/08/2015 completed Mark Anthony [facility] Depo-provera 150mg Inj 07/02/2015 completed Lennox [facility] Influenza Vaccine 06/16/2015 completed Jojo [facility] Influenza Vaccine 07/17/2012 completed [facility] Tdap Tetanus, diphtheria, acellular pertussis Vaccine 07/17/2012 completed [facility] Depo-provera 150mg Inj 01/11/2012 completed [facility] Tdap Tetanus, diphtheria, acellular pertussis Vaccine 08/12/2011 Not Given Deferred: Unavailable-Patient to return for vaccine later [facility] Influenza Vaccine 08/12/2011 completed [facility] Results Order Name Results Value Reference Range Date Interpretation Comments Source POC HIV RAPID 1/2-FQHC MANUALLY ENTERED Rapid HIV 1/2 Negative 02/08/2019 [facility] POC URINE DIPSTICK W/O MICRO-FQHC MANUALLY ENTERED Blood POC Neg 02/08/2019 [facility] POC URINE DIPSTICK W/O MICRO-FQHC MANUALLY ENTERED Urobilinogen POC 4 02/08/2019 [facility] POC URINE DIPSTICK W/O MICRO-FQHC MANUALLY ENTERED Bilirubin POC Neg 02/08/2019 [facility] POC URINE DIPSTICK W/O MICRO-FQHC MANUALLY ENTERED Protein POC 30 02/08/2019 [facility] POC URINE DIPSTICK W/O MICRO-FQHC MANUALLY ENTERED Nitrate POC Pos 02/08/2019 [facility] POC URINE DIPSTICK W/O MICRO-FQHC MANUALLY ENTERED Ketone POC Neg 02/08/2019 [facility] POC URINE DIPSTICK W/O MICRO-FQHC MANUALLY ENTERED Glucose POC Neg 02/08/2019 [facility] POC URINE DIPSTICK W/O MICRO-FQHC MANUALLY ENTERED Ph POC 6 5 02/08/2019 [facility] POC URINE DIPSTICK W/O MICRO-FQHC MANUALLY ENTERED Spec [place] POC 1.015 02/08/2019 [facility] POC URINE DIPSTICK W/O MICRO-FQHC MANUALLY ENTERED Leukocyte POC Neg 02/08/2019 [facility] POC URINE -FQHC MANUALLY ENTERED POC Negative 02/08/2019 [facility] [id number] 7+ALC-UNBUND <td ID="[id number]">Amphetamines, Urine</td><td><span>Negative</span><span style="allIndent"><span style="cellHeader">Comment: </span><span ID="[id number]">Amphetamine test includes Amphetamine and Methamphetamine.</span></span></td><td>Rlenkd=8142 ng/mL</td><td>[facility]</td><td ID="[id number]"/> Negative Fcnnka=3020 ng/mL 01/29/2019 Amphetamine test includes Amphetamine and Methamphetamine. [place] [address] 7+ALC-UNBUND <td ID="[id number]">Barbiturate</td><td>Negative</td><td>Dgiaoj=170 ng/mL</td><td>[facility]</td><td ID="[id number]"/> Negative Ekbcie=788 ng/mL 01/29/2019 [place] [address] 7+ALC-UNBUND <td ID="[id number]">Benzodiazepines</td><td>Negative</td><td>Kuscix=705 ng/mL</td><td>[facility]</td><td ID="[id number]"/> Negative Xwlcan=232 ng/mL 01/29/2019 [place] [address] 7+ALC-UNBUND <td ID="[id number]">Cannabinoid</td><td>Negative</td><td>Cutoff=50 ng/mL</td><td>[facility]</td><td ID="[id number]"/> Negative Cutoff=50 ng/mL 01/29/2019 [place] [address] 7+ALC-UNBUND <td ID="[id number]">Cocaine (Metab.)</td><td>Negative</td><td>Kwtkbf=181 ng/mL</td><td>[facility]</td><td ID="[id number]"/> Negative Vskfjl=064 ng/mL 01/29/2019 [place] [address] 7+ALC-UNBUND <td ID="[id number]">Opiates</td><td><span>Negative</span><span style="allIndent"><span style="cellHeader">Comment: </span><span ID="[id number]">Opiate test includes Codeine and Morphine only.</span></span></td><td>Iynipe=362 ng/mL</td><td>[facility]</td><td ID="[id number]"/> Negative Skrtji=418 ng/mL 01/29/2019 Opiate test includes Codeine and Morphine only. [facility] [id number] 7+ALC-UNBUND <td ID="[id number]">Phencyclidine</td><td>Negative</td><td>Cutoff=25 ng/mL</td><td>[facility]</td><td ID="[id number]"/> Negative Cutoff=25 ng/mL 01/29/2019 [facility] [id number] 7+ALC-UNBUND <td ID="[id number]">Ethanol, Urine</td><td>Negative</td><td>Cutoff=0.020 %</td><td>[facility] 01</td><td ID="[id number]"/> Negative Cutoff=0.020 % 01/29/2019 [facility] 129261 7+ALC-UNBUND <p>Performed at: [facility]</p><p>[address] [place], [place] [id number]</p><p>Direct Mail Manager: Reji Ma MD, Phone:[phone]</p> Performed at:[address] [place], [place] [id number] Direct Mail Manager: Reji Ma MD, Phone:[phone] 01/29/2019 [facility] AFP,SERUM,TUMOR MARKER <td ID="[id number]">AFP,Serum,Tumor Marker</td><td><span>1.1</span>
<span style="allIndent"><span style="cellHeader">Comment: </span>
<span ID="[id number]" style="pre">[employer] Electrochemiluminescence Immunoassay (ECLIA)
Values obtained with different assay methods or kits cannot be
used interchangeably.Results cannot be interpreted as absolute
evidence of the presence or absence of malignant disease.
This test is not interpretable in females.

</span></span></td><td>0.0 - 8.3 ng/mL</td><td>[facility]</td><td ID="[id number]"/> 1.1 ng/mL 0 - 8.3 01/29/2019 [employer] Electrochemiluminescence Immunoassay (ECLIA) Values obtained with different assay methods or kits cannot be used interchangeably.Results cannot be interpreted as absolute evidence of the presence or absence of malignant disease. This test is not interpretable in females. [facility] AFP,SERUM,TUMOR MARKER <p>Performed at: [facility]</p><p>[address] [place], [place] [id number]</p><p>Direct Mail Manager: Reji Ma MD, Phone:[phone]</p> Performed at: [id number] Direct Mail Manager: Reji Ma MD, Phone:[phone] 01/29/2019 [facility] CBC WITH DIFFERENTIAL/PLATELET <td ID="[id number]">WBC</td><td>3.9</td><td>3.4 - 10.8 x10E3/uL</td><td>[facility]</td><td ID="[id number]"/> 3.9 3.4 - 10.8103 01/29/2019 [facility] CBC WITH DIFFERENTIAL/PLATELET <td ID="[id number]">RBC</td><td>4.29</td><td>3.77 - 5.28 x10E6/uL</td><td>[facility] 01</td><td ID="[id number]"/> 4.29 3.77 - 5.21018 01/29/2019 [facility] CBC WITH DIFFERENTIAL/PLATELET <td ID="[id number]">Hemoglobin</td><td>12.1</td><td>11.1 - 15.9 g/dL</td><td>[facility]</td><td ID="[id number]"/> 12.1 g/dL 11.1 - 15.9 01/29/2019 [facility] CBC WITH DIFFERENTIAL/PLATELET <td ID="[id number]">Hematocrit</td><td>37.3</td><td>34.0 - 46.6 %</td><td>[facility]</td><td ID="[id number]"/> 37.3 % 34 - 46.6 01/29/2019 [facility] CBC WITH DIFFERENTIAL/PLATELET <td ID="[id number]">MCV</td><td>87</td><td>79 - 97 fL</td><td>[facility]</td><td ID="[id number]"/> 87 fL 79 - 97 01/29/2019 [facility] CBC WITH DIFFERENTIAL/PLATELET <td ID="[id number]">MCH</td><td>28.2</td><td>26.6 - 33.0 pg</td><td>[facility] 01</td><td ID="[id number]"/> 28.2 pg 26.6 - 33 01/29/2019 [facility] CBC WITH DIFFERENTIAL/PLATELET <td ID="[id number]">MCHC</td><td>32.4</td><td>31.5 - 35.7 g/dL</td><td>[facility] 01</td><td ID="[id number]"/> 32.4 g/dL 31.5 - 35.7 01/29/2019 [facility] CBC WITH DIFFERENTIAL/PLATELET <td ID="[id number]">RDW</td><td>15.1</td><td>12.3 - 15.4 %</td><td>[facility] 01</td><td ID="[id number]"/> 15.1 % 12.3 - 15.4 01/29/2019 [facility] CBC WITH DIFFERENTIAL/PLATELET <td ID="[id number]">Platelets</td><td><span>333</span><span style="allIndent"><span style="cellHeader">Comment: </span><span ID="[id number]"> Please note reference interval change</span></span></td><td>150 - 450 x10E3/uL</td><td>[facility] 01</td><td ID="[id number]"/> 333 150 - 140102 01/29/2019 Please note reference interval change [facility] CBC WITH DIFFERENTIAL/PLATELET <td ID="[id number]">Neutrophils</td><td>43</td><td>Not Estab. %</td><td>[facility] 01</td><td ID="[id number]"/> 43 % Not Estab. 01/29/2019 [facility] CBC WITH DIFFERENTIAL/PLATELET <td ID="[id number]">Lymphs</td><td>46</td><td>Not Estab. %</td><td>[facility] 01</td><td ID="[id number]"/> 46 % Not Estab. 01/29/2019 [facility] CBC WITH DIFFERENTIAL/PLATELET <td ID="[id number]">Monocytes</td><td>10</td><td>Not Estab. %</td><td>[facility] 01</td><td ID="[id number]"/> 10 % Not Estab. 01/29/2019 [facility] CBC WITH DIFFERENTIAL/PLATELET <td ID="[id number]">Eos</td><td>1</td><td>Not Estab. %</td><td>[facility] 01</td><td ID="[id number]"/> 1 % Not Estab. 01/29/2019 [facility] CBC WITH DIFFERENTIAL/PLATELET <td ID="[id number]">Basos</td><td>0</td><td>Not Estab. %</td><td>[facility] 01</td><td ID="[id number]"/> 0 % Not Estab. 01/29/2019 [facility] CBC WITH DIFFERENTIAL/PLATELET <td ID="[id number]">Neutrophils (Absolute)</td><td>1.7</td><td>1.4 - 7.0 x10E3/uL</td><td>[facility] 01</td><td ID="[id number]"/> 1.7 1.4 - 7.0103 01/29/2019 [facility] CBC WITH DIFFERENTIAL/PLATELET <td ID="[id number]">Lymphs (Absolute)</td><td>1.8</td><td>0.7 - 3.1 x10E3/uL</td><td>[facility] 01</td><td ID="[id number]"/> 1.8 0.7 - 3.1103 01/29/2019 [facility] CBC WITH DIFFERENTIAL/PLATELET <td ID="[id number]">Monocytes(Absolute)</td><td>0.4</td><td>0.1 - 0.9 x10E3/uL</td><td>[facility] 01</td><td ID="[id number]"/> 0.4 0.1 - 0.9103 01/29/2019 [facility] CBC WITH DIFFERENTIAL/PLATELET <td ID="[id number]">Eos (Absolute)</td><td>0.0</td><td>0.0 - 0.4 x10E3/uL</td><td>[facility] 01</td><td ID="[id number]"/> 0.0 0.0 - 0.4103 01/29/2019 [facility] CBC WITH DIFFERENTIAL/PLATELET <td ID="[id number]">Baso (Absolute)</td><td>0.0</td><td>0.0 - 0.2 x10E3/uL</td><td>[facility] 01</td><td ID="[id number]"/> 0.0 0.0 - 0.2103 01/29/2019 [facility] CBC WITH DIFFERENTIAL/PLATELET <td ID="[id number]">Immature Granulocytes</td><td>0</td><td>Not Estab. %</td><td>[facility] 01</td><td ID="[id number]"/> 0 % Not Estab. 01/29/2019 [facility] CBC WITH DIFFERENTIAL/PLATELET <td ID="[id number]">Immature Grans (Abs)</td><td>0.0</td><td>0.0 - 0.1 x10E3/uL</td><td>[facility] 01</td><td ID="[id number]"/> 0.0 0.0 - 0.1103 01/29/2019 [facility] CBC WITH DIFFERENTIAL/PLATELET <p>Performed at: - [facility]</p><p>[address] [facility], [id number]</p><p>Direct Mail Manager: Reji Ma MD, Phone:[phone]</p> Performed at: [facility] [address] [facility], [id number] Direct Mail Manager: Reji Ma MD, Phone:[phone] 01/29/2019 [facility] COMPREHENSIVE METABOLIC PANEL(14) <td ID="[id number]">Glucose, Serum</td><td><span>82</span>
<span style="allIndent"><span style="cellHeader">Comment: </span>
<span ID="[id number]" style="pre">Specimen received in contact with cells. No visible hemolysis
present. However GLUC may be decreased and K increased. Clinical
correlation indicated.

</span></span></td><td>65 - 99 mg/dL</td><td>[facility]</td><td ID="[id number]"/> 82 mg/dL 65 - 99 01/29/2019 Specimen received in contact with cells. No visible hemolysis present. However GLUC may be decreased and K increased. Clinical correlation indicated. [facility] COMPREHENSIVE METABOLIC PANEL(14) <td ID="[id number]">BUN</td><td>13</td><td>6 - 24 mg/dL</td><td>[facility] 01</td><td ID="[id number]"/> 13 mg/dL 6 - 24 01/29/2019 [facility] COMPREHENSIVE METABOLIC PANEL(14) <td ID="[id number]">Creatinine, Serum</td><td>0.70</td><td>0.57 - 1.00 mg/dL</td><td>[facility] 01</td><td ID="[id number]"/> 0.70 mg/dL 0.57 - 1 01/29/2019 [facility] COMPREHENSIVE METABOLIC PANEL(14) eGFR If NonAfricn Am 108 mL/min/1.73 >59 01/29/2019 [facility] COMPREHENSIVE METABOLIC PANEL(14) eGFR If Africn Am 124 mL/min/1.73 >59 01/29/2019 [facility] COMPREHENSIVE METABOLIC PANEL(14) <td ID="[id number]">BUN/Creatinine Ratio</td><td>19</td><td>9 - </td><td>[facility]</td><td ID="[id number]"/> 19 - 01/29/2019 [facility] METABOLIC PANEL(14) <td ID="[id number]">Sodium, Serum</td><td>139</td><td>134 - 144 mmol/L</td><td>[facility] 01</td><td ID="[id number]"/> 139 mmol/L 134 - 144 01/29/2019 [facility] COMPREHENSIVE METABOLIC PANEL(14) <td ID="[id number]">Potassium, Serum</td><td><span>4.3</span>
<span style="allIndent"><span style="cellHeader">Comment: </span>
<span ID="[id number]" style="pre">Specimen received in contact with cells. No visible hemolysis
present. However GLUC may be decreased and K increased. Clinical
correlation indicated.

</span></span></td><td>3.5 - 5.2 mmol/L</td><td>[facility] 01</td><td ID="[id number]"/> 4.3 mmol/L 3.5 - 5.2 01/29/2019 Specimen received in contact with cells. No visible hemolysis present. However GLUC may be decreased and K increased. Clinical correlation indicated. [facility] COMPREHENSIVE METABOLIC PANEL(14) <td ID="[id number]">Chloride, Serum</td><td>105</td><td>96 - 106 mmol/L</td><td>[facility] 01</td><td ID="[id number]"/> 105 mmol/L 96 - 106 01/29/2019 [facility] COMPREHENSIVE METABOLIC PANEL(14) <td ID="[id number]">Carbon Dioxide, Total</td><td>22</td><td>20 - 29 mmol/L</td><td>[facility] 01</td><td ID="[id number]"/> 22 mmol/L 20 - 29 01/29/2019 [facility] COMPREHENSIVE METABOLIC PANEL(14) <td ID="[id number]">Calcium, Serum</td><td><span style="flagData">8.3</span><span style="flagData"> (L)</span></td><td>8.7 - 10.2 mg/dL</td><td>[facility] 01</td><td ID="[id number]"/> 8.3 mg/dL 8.7 - 10.2 01/29/2019 [facility] COMPREHENSIVE METABOLIC PANEL(14) <td ID="[id number]">Protein, Total, Serum</td><td>7.1</td><td>6.0 - 8.5 g/dL</td><td>[facility] 01</td><td ID="[id number]"/> 7.1 g/dL 6 - 8.5 01/29/2019 [facility] COMPREHENSIVE METABOLIC PANEL(14) <td ID="[id number]">Albumin, Serum</td><td>4.0</td><td>3.5 - 5.5 g/dL</td><td>[facility] 01</td><td ID="[id number]"/> 4.0 g/dL 3.5 - 5.5 01/29/2019 [facility] COMPREHENSIVE METABOLIC PANEL(14) <td ID="[id number]">Globulin, Total</td><td>3.1</td><td>1.5 - 4.5 g/dL</td><td>[facility] 01</td><td ID="[id number]"/> 3.1 g/dL 1.5 - 4.5 01/29/2019 [facility] METABOLIC PANEL(14) <td ID="[id number]">A/G Ratio</td><td>1.3</td><td>1.2 - 2.2</td><td>[facility] 01</td><td ID="[id number]"/> 1.3 1.2 - 2.2 01/29/2019 [facility] COMPREHENSIVE METABOLIC PANEL(14) <td ID="[id number]">Bilirubin, Total</td><td><0.2</td><td>0.0 - 1.2 mg/dL</td><td>[facility] 01</td><td ID="[id number]"/> <0.2 0 - 1.2 01/29/2019 [facility] COMPREHENSIVE METABOLIC PANEL(14) <td ID="[id number]">Alkaline Phosphatase, S</td><td>83</td><td>39 - 117 IU/L</td><td>[facility] 01</td><td ID="[id number]"/> 83 39 - 117 01/29/2019 [facility] COMPREHENSIVE METABOLIC PANEL(14) <td ID="[id number]">AST (SGOT)</td><td>23</td><td>0 - 40 IU/L</td><td>[facility] 01</td><td ID="[id number]"/> 23 0 - 40 01/29/2019 [facility] COMPREHENSIVE METABOLIC PANEL(14) <td ID="[id number]">ALT (SGPT)</td><td>22</td><td>0 - 32 IU/L</td><td>[facility] 01</td><td ID="[id number]"/> 22 0 - 32 01/29/2019 [facility] COMPREHENSIVE METABOLIC PANEL(14) <p>Performed at:[address] [place] [address]</p><p>[address] [place], [place] [id number]</p><p>Direct Mail Manager: Reji Ma MD, Phone:[phone]</p> Performed at:[address] [place], [place] [id number] Direct Mail Manager: Reji Ma MD, Phone:[phone] 01/29/2019 [facility] COMPREHENSIVE METABOLIC PANEL(14) Lab Interpretation Abnormal 01/29/2019 [facility] HBSAG SCREEN <td ID="[id number]">HBsAg Screen</td><td>Negative</td><td>Negative</td><td>[facility] 01</td><td ID="[id number]"/> Negative Negative 01/29/2019 [facility] HBSAG SCREEN <p>Performed at:[address] [place] [address]</p><p>[address] [place], [place] [id number]</p><p>Direct Mail Manager: Reji Ma MD, Phone:[phone]</p> Performed at:[address] [place], [place] [id number] Direct Mail Manager: Reji Ma MD, Phone:[phone] 01/29/2019 [facility] HCV ANTIBODY <td ID="[id number]">Hep C Virus Ab</td><td><span style="flagData">>11.0</span><span style="flagData"> (H)</span>
<span style="allIndent"><span style="cellHeader">Comment: </span>
<span ID="[id number]" style="pre">Negative: < 0.8
Indeterminate: 0.8 - 0.9
Positive: > 0.9
The CDC recommends that a positive HCV antibody result
be followed up with a HCV Nucleic Acid Amplification
test (833055).

</span></span></td><td>0.0 - 0.9 s/co ratio</td><td>[facility] 01</td><td ID="[id number]"/> >11.0 0.0 - 0.9 01/29/2019 Negative: < 0.8 Indeterminate: 0.8 - 0.9 Positive: > 0.9 The CDC recommends that a positive HCV antibody result be followed up with a HCV Nucleic Acid Amplification test (507878). [facility] HCV ANTIBODY <p>Performed at:[facility]</p><p>[address] [place], [place] [id number]</p><p>Direct Mail Manager: Reji aM MD, Phone:[phone]</p> Performed at:[address] [place], [place] [id number] Direct Mail Manager: Reji Ma MD, Phone:[phone] 01/29/2019 [facility] HCV ANTIBODY Lab Interpretation Abnormal 01/29/2019 [facility] HCV RT-PCR QUANT (NON-GRAPH) <td ID="[id number]">Hepatitis C Quantitation</td><td>475,000</td><td>IU/mL</td><td>[facility] 02</td><td ID="[id number]"/> [id number] IU/mL 01/29/2019 [facility] HCV RT-PCR QUANT (NON-GRAPH) <td ID="[id number]">HCV log10</td><td>5.677</td><td>log10 IU/mL</td><td>[facility] 02</td><td ID="[id number]"/> 5.677 log10 IU/mL 01/29/2019 [facility] HCV RT-PCR QUANT (NON-GRAPH) Test Information: Comment 01/29/2019 The quantitative range of this assay is 15 IU/mL to 100 million IU/mL. [facility] HCV RT-PCR QUANT (NON-GRAPH) <p>[facility]formed at:[facility] - [facility]</p><p>[address] [place], [place] [id number]</p><p>Direct Mail Manager: Kelsy Salomon MD, Phone:[phone]</p> Performed at:[address] [place] [address] Direct Mail Manager: Kelsy Salomon MD, Phone:[phone] 01/29/2019 [facility] HEMOGLOBIN A1C <td ID="[id number]">Hemoglobin A1c</td><td><span>5.5</span>
<span style="allIndent"><span style="cellHeader">Comment: </span>
<span ID="[id number]" style="pre"> Prediabetes: 5.7 - 6.4
Diabetes: >6.4
Glycemic control for adults with diabetes: <7.0

</span></span></td><td>4.8 - 5.6 %</td><td>[facility] 01</td><td ID="[id number]"/> 5.5 % 4.8 - 5.6 01/29/2019 Prediabetes: 5.7 - 6.4 Diabetes: >6.4 Glycemic control for adults with diabetes: <7.0 [facility] HEMOGLOBIN A1C <p>Performed at:[address] [place] [address]</p><p>[address] [place], [place] [id number]</p><p>Direct Mail Manager: Reji Ma MD, Phone:[phone]</p> Performed at:[address] [place], [place] [id number] Direct Mail Manager: Reji Ma MD, Phone:[phone] 01/29/2019 [facility] HEP B CORE AB,TOT <td ID="[id number]">Hep B Core Ab, Tot</td><td>Negative</td><td>Negative</td><td>[facility] </td><td ID="[id number]"/> Negative Negative 01/29/2019 [facility] HEP B CORE AB,TOT <p>Performed at: [facility]</p><p>[address] [place], [place] [id number]</p><p>Direct Mail Manager: Reji Ma MD, Phone:[phone]</p> Performed at:[address] [place], [place] [id number] Direct Mail Manager: Reji Ma MD, Phone:[phone] 01/29/2019 [facility] HEP B SURFACE AB <td ID="[id number]">Hep B Surface Ab, Qual</td><td><span>Reactive</span>
<span style="allIndent"><span style="cellHeader">Comment: </span>
<span ID="[id number]" style="pre">Non Reactive: Inconsistent with immunity,
less than 10 mIU/mL
Reactive: Consistent with immunity,
greater than 9.9 mIU/mL

</span></span></td><td/><td>[facility] 01</td><td ID="[id number]"/> Reactive 01/29/2019 Non Reactive: Inconsistent with immunity, less than 10 mIU/mL Reactive: Consistent with immunity, greater than 9.9 mIU/mL [facility] HEP B SURFACE AB <p>Performed at: - [facility]</p><p>[address] [place], [place] [id number]</p><p>Direct Mail Manager: Reji Ma MD, Phone:[phone]</p> Performed at: - [id number] Direct Mail Manager: Reji Ma MD, Phone:[phone] 01/29/2019 [facility] HEPATITIS C VIRUS (HCV) FIBROSURE <td ID="[id number]">Fibrosis Score</td><td>0.02</td><td>0.00 - 0.21</td><td>[facility] 02</td><td ID="[id number]"/> 0.02 0.00 - 0.21 01/29/2019 [facility] HEPATITIS C VIRUS (HCV) FIBROSURE <td ID="[id number]">Fibrosis Stage</td><td><span>Comment</span><span style="allIndent"><span style="cellHeader">Comment: </span><span ID="[id number]"> F0 - No fibrosis</span></span></td><td/><td>[facility] 02</td><td ID="[id number]"/> Comment 01/29/2019 F0 - No fibrosis [facility] HEPATITIS C VIRUS (HCV) FIBROSURE <td ID="[id number]">Necroinflammat Activity Score</td><td>0.08</td><td>0.00 - 0.17</td><td>[facility] 02</td><td ID="[id number]"/> 0.08 0.00 - 0.17 01/29/2019 [facility] HEPATITIS C VIRUS (HCV) FIBROSURE <td ID="[id number]">Necroinflammat Activity Grade</td><td>A0-No activity</td><td/><td>[facility] 02</td><td ID="[id number]"/> A0-No activity 01/29/2019 [facility] HEPATITIS C VIRUS (HCV) FIBROSURE <td ID="[id number]">Alpha 2-Macroglobulins, Qn</td><td>179</td><td>110 - 276 mg/dL</td><td>[facility] 02</td><td ID="[id number]"/> 179 mg/dL 110 - 276 01/29/2019 [facility] HEPATITIS C VIRUS (HCV) FIBROSURE <td ID="[id number]">Haptoglobin</td><td>172</td><td>34 - 200 mg/dL</td><td>[facility] 02</td><td ID="[id number]"/> 172 mg/dL 34 - 200 01/29/2019 [facility] HEPATITIS C VIRUS (HCV) FIBROSURE <td ID="[id number]">Apolipoprotein A-1</td><td>154</td><td>116 - 209 mg/dL</td><td>[facility] 02</td><td ID="[id number]"/> 154 mg/dL 116 - 209 01/29/2019 [facility] HEPATITIS C VIRUS (HCV) FIBROSURE <td ID="[id number]">Bilirubin, Total</td><td><0.1</td><td>0.0 - 1.2 mg/dL</td><td>[facility] 02</td><td ID="[id number]"/> <0.1 0 - 1.2 01/29/2019 [facility] HEPATITIS C VIRUS (HCV) FIBROSURE <td ID="[id number]">GGT</td><td>19</td><td>0 - 60 IU/L</td><td>[facility] 02</td><td ID="[id number]"/> 19 0 - 60 01/29/2019 [facility] HEPATITIS C VIRUS (HCV) FIBROSURE <td ID="[id number]">ALT (SGPT) P5P</td><td>26</td><td>0 - 40 IU/L</td><td>[facility] 02</td><td ID="[id number]"/> 26 0 - 40 01/29/2019 [facility] HEPATITIS C VIRUS (HCV) FIBROSURE Interpretations: Comment 01/29/2019 Quantitative results of 6 biochemical tests are analyzed using a computational algorithm to provide a quantitative surrogate marker (0.0-1.0) for liver fibrosis (METAVIR F0-F4) and for necroinflammatory activity (METAVIR A0-A3). [facility] HEPATITIS C VIRUS (HCV) FIBROSURE Fibrosis Scoring: Comment 01/29/2019 <0.21=Stage F0 - No fibrosis 0.21 - 0.27=Stage F0 - F1 0.27 - 0.31=Stage F1 - Portal fibrosis 0.31 - 0.48=Stage F1 - F2 0.48 - 0.58=Stage F2 - Bridging fibrosis with few septa 0.58 - 0.72=Stage F3 - Bridging fibrosis with many septa 0.72 - 0.74=Stage F3 - F4 >0.74=Stage F4 - Cirrhosis [facility] HEPATITIS C VIRUS (HCV) FIBROSURE Necroinflamm Activity Scoring: Comment 01/29/2019 <0.17=Grade A0 - No Activity 0.17 - 0.29=Grade A0 - A1 0.29 - 0.36=Grade A1 - Minimal activity 0.36 - 0.52=Grade A1 - A2 0.52 - 0.60=Grade A2 - Moderate activity 0.60 - 0.62=Grade A2 - A3 >0.62=Grade A3 - Severe activity [facility] HEPATITIS C VIRUS (HCV) FIBROSURE <td ID="[id number]">Limitations:</td><td><span>Comment</span>
<span style="allIndent"><span style="cellHeader">Comment: </span>
<span ID="[id number]" style="pre">The negative predictive value of a Fibrotest score <0.31 (absence of
clinically significant fibrosis) was 85% when compared to liver biopsy
in 1,270 HCV infected patients with a 38% prevalence of significant
liver fibrosis (F2, 3 or 4). The positive pred ictive value of a Fibro-
test score >0.48 [...] fibrosis and
necroinflammatory activity in the liver.

</span></span></td&gt ;<td/><td>[facility] 02</td><td ID="[id number]"/> Comment 01/29/2019 The negative predictive value of a Fibrotest [...] fibrosis and necroinflammatory activity in the liver. [facility] HEPATITIS C VIRUS (HCV) FIBROSURE <td ID="[id number]">Comment:</td><td><span>Comment</span>
<span style="allIndent"><span style="cellHeader">Comment: </span>
<span ID="[id number]" style="pre">This test was developed and its performance characteristics determined
by [facility].It has not been cleared or approved by the Food and Drug
Administration.The FDA has determined that such clearance or
approval is not necessary.
For questions regarding this report please contact customer service
at .

</span></span></td><td/><td>[facility]</td><td ID="[id number]"/> Comment 01/29/2019 This test was developed and its performance characteristics determined by [employer].It has not been cleared or approved by the Food and Drug Administration.The FDA has determined that such clearance or approval is not necessary. For questions regarding this report please contact customer service at . [facility] HEPATITIS C VIRUS (HCV) FIBROSURE <p>Performed at: - [facility]</p><p>[address] [place], [place] [id number]</p><p>Direct Mail Manager: Kelsy Salomon MD, Phone:[phone]</p> Performed at:[address] [place] [address] [place], [place] [id number] Direct Mail Manager: Kelsy Salomon MD, Phone:[phone] 01/29/2019 [facility] HEPATITIS C VIRUS (HCV) GENOTYPING, NONREFLEX <td ID="[id number]">Hepatitis C Genotype</td><td>1b</td><td/><td>[facility] 02</td><td ID="[id number]"/> 1b 01/29/2019 [facility] HEPATITIS C VIRUS (HCV) GENOTYPING, NONREFLEX <td ID="[id number]">Please note:</td><td><span>Comment</span>
<span style="allIndent"><span style="cellHeader">Comment: </span>
<span ID="[id number]" style="pre">This test was developed and its performance characteristics determined
by [facility].It has not been cleared or approved by the U.S. Food and
Drug Administration.
The FDA has determined that such clearance or approval is not
necessary. This test is used for clinical purposes.It should not be
regarded as investigational or for research.

</span></span></td><td/><td>[facility] 02</td><td ID="[id number]"/> Comment 01/29/2019 This test was developed and its performance characteristics determined by [facility].It has not been cleared or approved by the U.S. Food and Drug Administration. The FDA has determined that such clearance or approval is not necessary. This test is used for clinical purposes.It should not be regarded as investigational or for research. [facility] HEPATITIS C VIRUS (HCV) GENOTYPING, NONREFLEX <p>Performed at:02 - [facility]</p><p>[address] [id number]</p><p>Direct Mail Manager: Kelsy Salomon MD, Phone:[phone]</p> Performed at:02 - [facility] [address] [id number] Direct Mail Manager: Kelsy Salomon MD, Phone:[phone] 01/29/2019 [facility] LIPID PANEL <td ID="[id number]">Cholestrol, Total</td><td>141</td><td>100 - 199 mg/dL</td><td>[facility] 01</td><td ID="[id number]"/> 141 mg/dL 100 - 199 01/29/2019 [facility] LIPID PANEL <td ID="[id number]">Triglyceride</td><td>66</td><td>0 - 149 mg/dL</td><td>[facility] 01</td><td ID="[id number]"/> 66 mg/dL 0 - 149 01/29/2019 [facility] LIPID PANEL <td ID="[id number]">HDL</td><td>63</td><td>>39 mg/dL</td><td>[facility] 01</td><td ID="[id number]"/> 63 mg/dL >39 01/29/2019 [facility] LIPID PANEL <td ID="[id number]">VLDL Cholestrol Calc</td><td>13</td><td>5 - 40 mg/dL</td><td>[facility] 01</td><td ID="[id number]"/> 13 mg/dL 5 - 40 01/29/2019 [facility] LIPID PANEL <td ID="[id number]">LDL Cholestrol Calc</td><td>65</td><td>0 - 99 mg/dL</td><td>[facility] 01</td><td ID="Ycveaq772736911Nfpw2Ikbezmlnf"/> 65 mg/dL 0 - 99 01/29/2019 [facility] LIPID PANEL <p>Performed at: [facility]</p><p>[address] [place], [place] [id number]</p><p>Direct Mail Manager: Reji Ma MD, Phone:[phone]</p> Performed at: - [facility] [address] [place], [place] Direct Mail Manager: Reji Ma MD, Phone:[phone] 01/29/2019 [facility] PROTHROMBIN AND PARTIAL THROMBOPLASTIN TIMES <td ID="[id number]">INR</td><td><span>1.0</span>
<span style="allIndent"><span style="cellHeader">Comment: </span>
<span ID="[id number]" style="pre">Reference interval is for non- anticoagulated patients.
Suggested INR therapeutic range for Vitamin K
antagonist therapy:
Standard Dose (moderate intensity
therapeutic range): 2.0 - 3.0
Higher intensity therapeutic range 2.5 - 3.5
<br/&g t;</span></span></td><td>0.8 - 1.2</td><td>[facility] 01</td><td ID="[id number]"/> 1.0 0.8 - 1.2 01/29/2019 Reference interval is for non-anticoagulated patients. Suggested INR therapeutic range for Vitamin K antagonist therapy: Standard Dose (moderate intensity therapeutic range): 2.0 - 3.0 Higher intensity therapeutic range 2.5 - 3.5 [facility] PROTHROMBIN AND PARTIAL THROMBOPLASTIN TIMES <td ID="[id number]">Prothrombin Time</td><td>10.4</td><td>9.1 - 12.0 sec</td><td>[facility] 01</td><td ID="[id number]"/> 10.4 9.1 - 12.0 01/29/2019 [facility] PROTHROMBIN AND PARTIAL THROMBOPLASTIN TIMES <td ID="[id number]">APTT</td><td><span style="flagData">36</span><span style="flagData"> (H)</span>
<span style="allIndent"><span style="cellHeader">Comment: </span>
<span ID="[id number]" style="pre">This test has not been validated for monitoring unfractionated heparin
therapy. aPTT-based therapeutic ranges for unfractionated heparin
therapy have not been established. For general guidelines on
Heparin monitoring, refer to the [facility] Directory of Services.

</span></span></td><td>24 - 33 sec</td><td>[facility] 01</td><td ID="[id number]"/> 36 24 - 33 01/29/2019 This test has not been validated for monitoring unfractionated heparin therapy. aPTT-based therapeutic ranges for unfractionated heparin therapy have not been established. For general guidelines on Heparin monitoring, refer to the [facility]. [facility] PROTHROMBIN AND PARTIAL THROMBOPLASTIN TIMES <p>Performed at:[address] [place] [address]</p><p>[address] [place], [place] [id number]</p><p>Direct Mail Manager: Reji Ma MD, Phone:[phone]</p> Performed at:[address] [place], [place] [id number] Direct Mail Manager: Reji Ma MD, Phone:[phone] 01/29/2019 [facility] PROTHROMBIN AND PARTIAL THROMBOPLASTIN TIMES Lab Interpretation Abnormal 01/29/2019 [facility] THYROID CASCADE PROFILE <td ID="[id number]">TSH</td><td>0.863</td><td>0.450 - 4.500 uIU/mL</td><td>[facility] 01</td><td ID="[id number]"/> 0.863 0.450 - 4.500 01/29/2019 [facility] THYROID CASCADE PROFILE <p>Performed at:[address] [place] [address]</p><p>[address] [place], [place] [id number]</p><p>Direct Mail Manager: Reji Ma MD, Phone:[phone]</p> Performed at:[address] [place], [place] [id number] Direct Mail Manager: Reji Ma MD, Phone:[phone] 01/29/2019 [facility] CHLAM/GC DNA AMPLI <td ID="[id number]">Chlamydia trach</td><td>Negative</td><td>NEG</td><td>[facility]</td><td ID="[id number]"/> Negative NEG 09/09/2018 [facility] CHLAM/GC DNA AMPLI <td ID="[id number]">N gonorrhoeae</td><td><span>Negative</span>
<span style="allIndent"><span style="cellHeader">Comment: </span>
<span ID="[id number]" style="pre"> This test utilizes Hologic Aptima Combo 2 Assay for target amplification of
rRNA for the qualitative detection of Chlamydia trachomatis and Neisseria
gonorrhea.

</span></span></td><td>NEG</td><td>[facility]</td><td ID="[id number]"/> Negative NEG 09/09/2018 This test utilizes Hologic Aptima Combo 2 Assay for target amplification of rRNA for the qualitative detection of Chlamydia trachomatis and Neisseria gonorrhea. [facility] CHLAM/GC DNA AMPLI Spec Description Endovervical 09/09/2018 [facility] AURELIA STAIN Spec Description Vaginal 09/09/2018 [facility] AURELIA STAIN Order Comments None 09/09/2018 [facility] AURELIA STAIN <td ID="[id number]">Direct Exam</td><td>No fungus seen by AURELIA</td><td/><td>[facility]</td><td ID="[id number]"/> No fungus seen by AURELIA 09/09/2018 [facility] AURELIA STAIN Report Status Final 09/08/2018 09/09/2018 [facility] WET MOUNT Spec Description Vaginal 09/09/2018 [facility] WET MOUNT Order Comments None 09/09/2018 [facility] <td ID="[id number]">Exam</td><td styleCode="noIndent"><span ID="[id number]" style="pre">WBC's seen
Epithelial cells
Bacteria present
Clue cells present
No Trichomonas seen
No yeast seen
</span></td><td/><td>[facility]</td><td ID="[id number]"/> WBC's seen Epithelial cells Bacteria present Clue cells present No Trichomonas seen No yeast seen 09/09/2018 [facility] Report Status Final 09/08/2018 09/09/2018 [facility] HEPATITIS C VIRUS (HCV), QUANT, RNA (REALTIME) Hepatitis C Quantitation [id number] IU/mL 10/18/2017 [facility] HEPATITIS C VIRUS (HCV), QUANT, RNA (REALTIME) HCV log10 5.615 log10 IU/mL 10/18/2017 [facility] HEPATITIS C VIRUS (HCV), QUANT, RNA (REALTIME) Test Information: Comment 10/18/2017 The quantifiable range of this assay is 12 to 100,000,000 IU/mL for genotypes 1-6 and the limit of detection of the assay is 12 IU/mL. [facility] HEPATITIS C VIRUS (HCV), QUANT, RNA (REALTIME) <p>Performed at: - [facility]p><p[facility] [id number]</p><p>Direct Mail Manager: Filiberto Benavides MD, Phone:[phone]</p> Performed at: - [facility] [id number] Direct Mail Manager: Filiberto Benavides MD, Phone:[phone] 10/18/2017 [facility] PROTHROMBIN AND PARTIAL THROMBOPLASTIN TIMES INR 1.0 0.8 - 1.2 10/14/2017 Reference interval is for non-anticoagulated patients. Suggested INR therapeutic range for Vitamin K antagonist therapy: Standard Dose (moderate intensity therapeutic range): 2.0 - 3.0 Higher intensity therapeutic range 2.5 - 3.5 [facility] PROTHROMBIN AND PARTIAL THROMBOPLASTIN TIMES Prothrombin Time 10.1 9.1 - 12.0 10/14/2017 [facility] PROTHROMBIN AND PARTIAL THROMBOPLASTIN TIMES APTT 31 24 - 33 10/14/2017 This test has not been validated for monitoring unfractionated heparin therapy. aPTT-based therapeutic ranges for unfractionated heparin therapy have not been established. For general guidelines on Heparin monitoring, refer to the [facility] Directory of Services. [facility] PROTHROMBIN AND PARTIAL THROMBOPLASTIN TIMES <p>Performed at: [facility]</p><p>[address] [place], [place] [id number]</p><p>Direct Mail Manager: Reji Ma MD, Phone:[phone]</p> Performed at:[address] [place], [place] [id number] Direct Mail Manager: Reji Ma MD, Phone:[phone] 10/14/2017 [facility] CARDIOVASCULAR RISK ASSESSMENT Interpretation Note 10/14/2017 Supplemental report is available. [facility] CARDIOVASCULAR RISK ASSESSMENT <p>Performed at:[employer]</p><p>[address] [place] [address], [id number]</p><p>Direct Mail Manager: Leopoldo Melo PhD, Phone:[phone]</p> Performed at:[facility], [id number] Direct Mail Manager: Leopoldo Melo PhD, Phone:[phone] 10/14/2017 [facility] CBC WITH DIFFERENTIAL/PLATELET WBC 4.8 3.4 - 10.8103 10/14/2017 [facility] CBC WITH DIFFERENTIAL/PLATELET RBC 4.58 3.77 - 5.50607 10/14/2017 [facility] CBC WITH DIFFERENTIAL/PLATELET Hemoglobin 14.1 g/dL 11.1 - 15.9 10/14/2017 [facility] CBC WITH DIFFERENTIAL/PLATELET Hematocrit 41.7 % 34 - 46.6 10/14/2017 [facility] CBC WITH DIFFERENTIAL/PLATELET MCV 91 fL 79 - 97 10/14/2017 [facility] CBC WITH DIFFERENTIAL/PLATELET MCH 30.8 pg 26.6 - 33 10/14/2017 [facility] CBC WITH DIFFERENTIAL/PLATELET MCHC 33.8 g/dL 31.5 - 35.7 10/14/2017 [facility] CBC WITH DIFFERENTIAL/PLATELET RDW 14.5 % 12.3 - 15.4 10/14/2017 [facility] CBC WITH DIFFERENTIAL/PLATELET Platelet 327 150 - 152195 10/14/2017 [facility] CBC WITH DIFFERENTIAL/PLATELET Neutrophil 47 % Not Estab. 10/14/2017 [facility] CBC WITH DIFFERENTIAL/PLATELET Lymphocyte 37 % Not Estab. 10/14/2017 [facility] CBC WITH DIFFERENTIAL/PLATELET Monocyte 13 % Not Estab. 10/14/2017 [facility] CBC WITH DIFFERENTIAL/PLATELET Eosinophil 2 % Not Estab. 10/14/2017 [facility] CBC WITH DIFFERENTIAL/PLATELET Basophil 1 % Not Estab. 10/14/2017 [facility] CBC WITH DIFFERENTIAL/PLATELET Neutrophil, Abs 2.3 1.4 - 7.0103 10/14/2017 [facility] CBC WITH DIFFERENTIAL/PLATELET Lymphocyte, Abs 1.8 0.7 - 3.1103 10/14/2017 [facility] CBC WITH DIFFERENTIAL/PLATELET Monocyte, Abs 0.6 0.1 - 0.9103 10/14/2017 [facility] CBC WITH DIFFERENTIAL/PLATELET Eosinophil, Abs 0.1 0.0 - 0.4103 10/14/2017 [facility] CBC WITH DIFFERENTIAL/PLATELET Basophil, Abs 0.0 0.0 - 0.2103 10/14/2017 [facility] CBC WITH DIFFERENTIAL/PLATELET Pct Immat Gran 0 % Not Estab. 10/14/2017 [facility] CBC WITH DIFFERENTIAL/PLATELET Absol Immat Gran 0.0 0.0 - 0.1103 10/14/2017 [facility] CBC WITH DIFFERENTIAL/PLATELET <p>Performed at:[address] [place] [address]</p><p>[address] [place], [place] [id number]</p><p>Direct Mail Manager: Reji Ma MD, Phone:[phone]</p> Performed at:[address] [place], [place] [id number] Direct Mail Manager: Reji Ma MD, Phone:[phone] 10/14/2017 [facility] METABOLIC PANEL(14) GLUCOSE, SERUM 74 mg/dL 65 - 99 10/14/2017 [facility] METABOLIC PANEL(14) Urea Nitrogen 11 mg/dL 6 - 24 10/14/2017 [facility] METABOLIC PANEL(14) CREATININE, SERUM 0.78 mg/dL 0.57 - 1 10/14/2017 [facility] COMPREHENSIVE METABOLIC PANEL(14) GFR, ESTIM, NON AFR-AM 95 mL/min/1.73 >59 10/14/2017 [facility] COMPREHENSIVE METABOLIC PANEL(14) GFR, Estim, Afr-Am 110 mL/min/1.73 >59 10/14/2017 [facility] COMPREHENSIVE METABOLIC PANEL(14) BUN/Creatinine Ratio 14 9 - 23 10/14/2017 [facility] COMPREHENSIVE METABOLIC PANEL(14) Sodium, Serum 141 mmol/L 134 - 144 10/14/2017 [facility] COMPREHENSIVE METABOLIC PANEL(14) Potassium, Serum 4.4 mmol/L 3.5 - 5.2 10/14/2017 [facility] COMPREHENSIVE METABOLIC PANEL(14) Chloride, Serum 99 mmol/L 96 - 106 10/14/2017 [facility] COMPREHENSIVE METABOLIC PANEL(14) Carbon Dioxide, Total 23 mmol/L 18 - 29 10/14/2017 [facility] COMPREHENSIVE METABOLIC PANEL(14) Calcium, Serum 8.4 mg/dL 8.7 - 10.2 10/14/2017 [facility] COMPREHENSIVE METABOLIC PANEL(14) T Protein 7.4 g/dL 6 - 8.5 10/14/2017 [facility] COMPREHENSIVE METABOLIC PANEL(14) Albumin, Serum 4.2 g/dL 3.5 - 5.5 10/14/2017 [facility] COMPREHENSIVE METABOLIC PANEL(14) Globulin, Total 3.2 g/dL 1.5 - 4.5 10/14/2017 [facility] COMPREHENSIVE METABOLIC PANEL(14) A/G Ratio 1.3 1.2 - 2.2 10/14/2017 [facility] COMPREHENSIVE METABOLIC PANEL(14) T Bilirubin 0.4 mg/dL 0 - 1.2 10/14/2017 [facility] COMPREHENSIVE METABOLIC PANEL(14) Alk Phos 96 39 - 117 10/14/2017 [facility] METABOLIC PANEL(14) AST 21 0 - 40 10/14/2017 [facility] METABOLIC PANEL(14) ALT (SGPT) 20 0 - 32 10/14/2017 [facility] METABOLIC PANEL(14) <p>Performed at:[address] [place] [address]</p><p>[address] [place], [place] [id number]</p><p>Direct Mail Manager: Reji Ma MD, Phone:[phone]</p> Performed at:[address] [place], [place] [id number] Direct Mail Manager: Reji Ma MD, Phone:[phone] 10/14/2017 [facility] COMPREHENSIVE METABOLIC PANEL(14) Lab Interpretation Abnormal 10/14/2017 [facility] LIPID PANEL Cholestrol, Total 130 mg/dL 100 - 199 10/14/2017 [facility] LIPID PANEL Triglyceride 63 mg/dL 0 - 149 10/14/2017 [facility] LIPID PANEL HDL 52 mg/dL >39 10/14/2017 [facility] LIPID PANEL VLDL Cholestrol Calc 13 mg/dL 5 - 40 10/14/2017 [facility] LIPID PANEL LDL Cholestrol Calc 65 mg/dL 0 - 99 10/14/2017 [facility] LIPID PANEL <p>Performed at:01 - [facility]</p><p>[address], [id number]</p><p>Direct Mail Manager: Reji Ma MD, Phone:[phone]</p> Performed at:01 - [facility] [address], [id number] Direct Mail Manager: Reji Ma MD, Phone:[phone] 10/14/2017 [facility] CARDIAC ENZYMES Total CK 132 unit/L 12 - 191 11/19/2014 [facility] ELECTROLYTES AGAP 10.7 meq/L 10.0 - 20.0 11/19/2014 [facility] ELECTROLYTES B/C Ratio 16 6 - 25 11/19/2014 [facility] ELECTROLYTES Globulin 4.0 g/dL 2.0 - 4.0 11/19/2014 [facility] ELECTROLYTES A/G Ratio 0.7 0.7 - 1.6 11/19/2014 [facility] ELECTROLYTES eGFR 83 mL/min/1.73m2 11/19/2014 1Result Comment: The eGFR is calculated using the CKD-EPI formula. In most young, healthy individuals the eGFR will be >90 mL/min/1.73m2. The eGFR declines with age. An eGFR of 60-89 may be normal in some populations, particularly the elderly, for whom the CKD-EPI formula has not been extensively validated. Use of the eGFR is not recommended in the following populations: Individuals with unstable creatinine concentrations, including patients and those with serious co-morbid conditions. Patients with extremes in muscle mass or diet. The data above are obtained from the National Kidney Disease Education Program (NKDEP) which additionally recommends that when the eGFR is used in patients with extremes of body mass index for purposes of drug dosing, the eGFR should be multiplied by the estimated BMI. [facility] ELECTROLYTES Calcium Lvl 8.3 mg/dL 8.5 - 10.5 11/19/2014 [facility] ELECTROLYTES CO2 25 meq/L 24 - 32 11/19/2014 [facility] ELECTROLYTES Glucose Lvl 114 mg/dL 70 - 99 11/19/2014 2Interpretive Data: Adult reference range values reflect the clinical guidelines of the [place] [employer]. [facility] ELECTROLYTES BUN 16 mg/dL 7 - 22 11/19/2014 [facility] ELECTROLYTES Potassium Lvl 3.7 meq/L 3.5 - 5.1 11/19/2014 [facility] ELECTROLYTES Chloride Lvl 104 meq/L 95 - 109 11/19/2014 [facility] ELECTROLYTES Creatinine Lvl 1.0 mg/dL 0.5 - 1.4 11/19/2014 [facility] ELECTROLYTES Sodium Lvl 136 meq/L 135 - 145 11/19/2014 [facility] ELECTROLYTES ALT 22 unit/L 0 - 65 11/19/2014 [facility] ELECTROLYTES Albumin Lvl 2.8 g/dL 3.5 - 5.0 11/19/2014 [facility] ELECTROLYTES Total Protein 6.8 g/dL 6.4 - 8.4 11/19/2014 [facility] ELECTROLYTES Alk Phos 91 unit/L 39 - 136 11/19/2014 [facility] ELECTROLYTES Bili Total 0.2 mg/dL 0.2 - 1.3 11/19/2014 [facility] ELECTROLYTES AST 14 unit/L 0 - 37 11/19/2014 [facility] HEMATOLOGY MPV 7.9 fL 7.4 - 10.4 11/19/2014 [facility] HEMATOLOGY Platelet 409 K/CMM 133 - 450 11/19/2014 [facility] HEMATOLOGY MCV 89.9 fL 80.0 - 98.0 11/19/2014 [facility] HEMATOLOGY Hct 38.1 % 36.0 - 48.0 11/19/2014 [facility] HEMATOLOGY MCHC 32.4 g/dL 32.0 - 36.0 11/19/2014 [facility] HEMATOLOGY MCH 29.1 pg 27.0 - 31.0 11/19/2014 [facility] HEMATOLOGY RDW 14.6 % 11.5 - 14.5 11/19/2014 [facility] HEMATOLOGY Hgb 12.3 g/dL 12.0 - 16.0 11/19/2014 [facility] HEMATOLOGY RBC 4.24 M/CMM 4.20 - 5.40 11/19/2014 [facility] HEMATOLOGY WBC 8.1 K/CMM 3.7 - 10.4 11/19/2014 [facility] HEMATOLOGY Segs-Bands # 4.1 K/CMM 1.5 - 8.1 11/19/2014 [facility] HEMATOLOGY Lymphocytes 34.0 % 20.0 - 40.0 11/19/2014 [facility] HEMATOLOGY Segs 50.7 % 45.0 - 75.0 11/19/2014 [facility] HEMATOLOGY Eosinophils 4.4 % 0.0 - 4.0 11/19/2014 [facility] HEMATOLOGY Monocytes 7.9 % 2.0 - 12.0 11/19/2014 [facility] HEMATOLOGY Basophils 3.0 % 0.0 - 1.0 11/19/2014 [facility] HEMATOLOGY Basophils # 0.2 K/CMM 0.0 - 0.2 11/19/2014 [facility] HEMATOLOGY Eosinophils # 0.4 K/CMM 0.0 - 0.5 11/19/2014 [facility] HEMATOLOGY Lymphocytes # 2.8 K/CMM 1.0 - 5.5 11/19/2014 [facility] HEMATOLOGY Monocytes # 0.6 K/CMM 0.0 - 0.8 11/19/2014 [facility] TOXICOLOGY Acetaminoph Lvl <2
(11/19/14 5:38 AM) 10 - 20 11/19/2014 [facility] TOXICOLOGY Etoh (%) null 11/19/2014 4Interpretive Data: Ethanol testing results should be used for medical purposes only. Negative Range: <0.003% Toxic Range: >0.25% [facility] TOXICOLOGY Ethanol Lvl null 11/19/2014 5Interpretive Data: Negative Range: <3 mg/dL Toxic Range: >250 mg/dL [facility] TOXICOLOGY Salicylate Lvl <1.7 mg/dL 0.0 - 30.0 11/19/2014 [facility] DRUG SCREEN U Phencyc Scr Negative *NA* (11/19/14 3:43 AM) Negative 11/19/2014 [facility] DRUG SCREEN U Cocaine Scr Positive *ABN* (11/19/14 3:43 AM) Negative 11/19/2014 [facility] DRUG SCREEN U Opiate Scr Negative *NA* (11/19/14 3:43 AM) Negative 11/19/2014 [facility] DRUG SCREEN U Cannab Scr Positive *ABN* (11/19/14 3:43 AM) Negative 11/19/2014 [facility] DRUG SCREEN UDS Note See Note 3 (11/19/14 3:43 AM) 11/19/2014 3Interpretive Data: Drugs reported as positive have not been confirmed by a second method and should be used for medical purposes only. To order confirmation, contact laboratory. note: Below are cut-off concentrations for all urine drugs of abuse performed in the laboratory. Some drugs listed in the table may not be included in this panel. Description Cut-off concentration Amphetamine 1000 ng/mL Barbiturates 200 ng/mL Benzodiazepines 300 ng/mL Cocaine metabolites 300 ng/mL Opiates 300 ng/mL Phencyclidine 25 ng/mL Propoxyphene 300 ng/mL Marijuana metabolites 50 ng/mL Methadone 300 ng/mL Urine alcohol 20 mg/dL [facility] DRUG SCREEN U Padma Scr Negative *NA* (11/19/14 3:43 AM) Negative 11/19/2014 [facility] DRUG SCREEN U Amph Scr Positive *ABN* (11/19/14 3:43 AM) Negative 11/19/2014 [facility] DRUG SCREEN U Benzodia Scr Positive *ABN* (11/19/14 3:43 AM) Negative 11/19/2014 [facility] URINE AND STOOL UA Bacteria Few /HPF None Seen /HPF 11/19/2014 [facility] URINE AND STOOL UA WBC 0-2 /HPF None Seen /HPF 11/19/2014 [facility] URINE AND STOOL UA RBC 0-2 /HPF 0 - 2 11/19/2014 [facility] URINE AND STOOL UA Sq Epi Moderate /LPF Few /LPF 11/19/2014 [facility] URINE AND STOOL Micro? Performed (11/19/14 3:43 AM) 11/19/2014 [facility] URINE AND STOOL UA Color Yellow *NA* (11/19/14 3:43 AM) Yellow 11/19/2014 [facility] URINE AND STOOL UA Turbidity Clear (11/19/14 3:43 AM) Clear 11/19/2014 [facility] URINE AND STOOL UA Ketones Negative *NA* (11/19/14 3:43 AM) Negative 11/19/2014 [facility] URINE AND STOOL UA Glucose Negative (11/19/14 3:43 AM) Negative 11/19/2014 [facility] URINE AND STOOL UA Spec Grav 1.031 <=1.030 11/19/2014 [facility] URINE AND STOOL UA Protein Negative (11/19/14 3:43 AM) Negative 11/19/2014 [facility] URINE AND STOOL UA pH 6.0 5.0 - 8.0 11/19/2014 [facility] URINE AND STOOL UA Urobilinogen 2.0 EU/dL 0.1 - 1.0 11/19/2014 [facility] URINE AND STOOL UA Leuk Est Negative (11/19/14 3:43 AM) Negative 11/19/2014 [facility] URINE AND STOOL UA Nitrite Negative (11/19/14 3:43 AM) Negative 11/19/2014 [facility] URINE AND STOOL UA Blood Negative (11/19/14 3:43 AM) Negative 11/19/2014 [facility] URINE AND STOOL UA Bili Negative *NA* (11/19/14 3:43 AM) Negative 11/19/2014 [facility] URINE CHEM U Preg Negative (11/19/14 3:43 AM) Negative 11/19/2014 [facility] Vital Signs Vital Sign Value Date Comments Source Systolic (mm Hg) 113 02/08/2019 [facility] Diastolic (mm Hg) 76 02/08/2019 [facility] Heart Rate 70 02/08/2019 [facility] Temperature Oral (F) 36.56 Melissa 02/08/2019 [facility] Height 172.7 cm 02/08/2019 [facility] Weight 67.858 02/08/2019 [facility] Systolic (mm Hg) 126 10/19/2018 [facility] Diastolic (mm Hg) 78 10/19/2018 [facility] Heart Rate 85 10/19/2018 [facility] Temperature Oral (F) 36.56 Melissa 10/19/2018 [facility] Respitory Rate 18 10/19/2018 [facility] Weight 66.679 10/19/2018 [facility] Systolic (mm Hg) 119 10/05/2018 [facility] Diastolic (mm Hg) 66 10/05/2018 [facility] Heart Rate 75 10/05/2018 [facility] Temperature Oral (F) 36.61 Melissa 10/05/2018 [facility] Respitory Rate 18 10/05/2018 [facility] Height 172.7 cm 10/05/2018 [facility] Weight 61.236 10/05/2018 [facility] Systolic (mm Hg) 117 09/08/2018 [facility] Diastolic (mm Hg) 84 09/08/2018 [facility] Heart Rate 73 09/08/2018 [facility] Temperature Oral (F) 36.5 Melissa 09/08/2018 [facility] Respitory Rate 16 09/08/2018 [facility] Height 172.7 cm 09/08/2018 [facility] Weight 60.782 09/08/2018 [facility] Heart Rate 86 11/19/2014 [facility] Temperature Oral (F) 97.6 F 11/19/2014 [facility] Center Systolic (mm Hg) 119 11/19/2014 [facility] Diastolic (mm Hg) 68 11/19/2014 [facility] Center Respitory Rate 16 11/19/2014 [facility] Temperature Oral (F) 97.6 F 11/19/2014 [facility] Center Respitory Rate 18 11/19/2014 [facility] Heart Rate 88 11/19/2014 [facility] Center Systolic (mm Hg) 119 11/19/2014 [facility] Center Diastolic (mm Hg) 68 11/19/2014 [facility] Center Systolic (mm Hg) 110 11/19/2014 [facility] Center Diastolic (mm Hg) 68 11/19/2014 [facility] Heart Rate 86 11/19/2014 [facility] Center Respitory Rate 16 11/19/2014 [facility] Temperature Oral (F) 98.2 F 11/19/2014 [facility] Height 170.18 cm 11/18/2014 [facility] BMI Calculated 28.59 11/18/2014 [facility] Weight 82.8 11/18/2014 [facility] Encounters Location Location Details Encounter Type Encounter Number Reason For Visit Attending Provider ADM Date DC Date Status Source [facility] [id number] Titus Lora 11/18/2014 11/19/2014 [facility] FAMILY PRACTICE Office Visit [id number] Dianelys Goldsmith MD 10/13/2017 10/17/2017 [facility] FAMILY PRACTICE Telephone [id number] Shonda Varghesefrank Resident 10/17/2017 [facility] FAMILY PRACTICE Office Visit [id number] Shea Jeronimo MD 12/29/2017 01/06/2018 [facility] Primary Care Medicine Telephone [id number] Tommy Dacosta 04/26/2018 [facility] Primary Care Medicine Office Visit [id number] Jono Estrada NP 04/27/2018 04/27/2018 [facility] Travel [id number] 09/08/2018 [facility] Renae Campbell Same Day Office Visit [id number] Cynthia Cordova MD 09/08/2018 09/08/2018 [facility] FAMILY PRACTICE Office Visit [id number] Alondra Lund Resident 10/05/2018 10/11/2018 [facility] Travel [id number] 10/19/2018 [facility] ([facility]) [facility] [id number] Beronica Grullon Physician 10/19/2018 10/19/2018 [facility] FAMILY PRACTICE Telephone [id number] Prerna Patel 01/05/2019 [facility] FAMILY PRACTICE Telephone [id number] Alondra Lund Resident 01/11/2019 [facility] Travel [id number] 01/24/2019 [facility] Primary Care Medicine Office Visit [id number] Kari Smith NP 01/24/2019 01/24/2019 [facility] Travel [id number] 02/08/2019 [facility] Primary Care Medicine Office Visit [id number] Kari Smith NP 02/08/2019 02/08/2019 [facility]. Behavioral Health/Counseling Office Visit [id number] Crystal Leggett Counselor 02/08/2019 02/08/2019 [facility] Procedures Procedure Code Date Perfomer Comments Source POC URINE DIPSTICK W/O MICRO-FQHC MANUALLY ENTERED [id number] 02/08/2019 [facility] POC HIV RAPID 1/2-FQHC MANUALLY ENTERED 535254 02/08/2019 [facility] POC URINE -FQHC MANUALLY ENTERED [id number] 02/08/2019 [facility] AFP,SERUM,TUMOR MARKER 65096 01/24/2019 [facility] HEP B CORE AB,TOT 82896 01/24/2019 [facility] [place] [address] 01/24/2019 [facility] HBSAG SCREEN 08268 01/24/2019 [facility] HCV ANTIBODY [id number] 01/24/2019 [facility] HEPATITIS C VIRUS (HCV) FIBROSURE [id number] 01/24/2019 [facility] HEPATITIS C VIRUS (HCV) GENOTYPING, NONREFLEX 90672 01/24/2019 [facility] HCV RT-PCR QUANT (NON-GRAPH) 33048 01/24/2019 [facility] [id number] 7+ALC-UNBUND 86148 01/24/2019 [facility] CBC WITH DIFFERENTIAL/PLATELET 79130 01/24/2019 [facility] COMPREHENSIVE METABOLIC PANEL(14) 95350 01/24/2019 [facility] PROTHROMBIN AND PARTIAL THROMBOPLASTIN TIMES 32313 01/24/2019 [facility] HEMOGLOBIN A1C 85319 01/24/2019 [facility] LIPID PANEL 69714 01/24/2019 [facility] THYROID CASCADE PROFILE 79990 01/24/2019 [facility] AURELIA STAIN 82331 09/09/2018 [facility] WET MOUNT [id number] 09/09/2018 [facility] GENITAL WET MOUNT WITH AURELIA 47250 09/09/2018 [facility] CHLAM/GC DNA AMPLI 64315 09/09/2018 [facility] CBC WITH DIFFERENTIAL/PLATELET 45804 10/14/2017 [facility] COMPREHENSIVE METABOLIC PANEL(14) 04545 10/14/2017 [facility] LIPID PANEL 20586 10/14/2017 [facility] HEPATITIS C VIRUS (HCV), QUANT, RNA (REALTIME) 57823 10/14/2017 [facility] PROTHROMBIN AND PARTIAL THROMBOPLASTIN TIMES 68455 10/14/2017 [facility] CARDIOVASCULAR RISK ASSESSMENT [id number] 10/14/2017 [facility] section [id number] [facility]
--- OUTSIDE RECORDS SUMMARY | 2019-02-28 05:11 | XMS REPORT | Clinical Summary ---
Author Author [facility] Organization [facility] Address Unknown Phone Unavailable Care Team Providers Care Tyre Builder Name Role Phone Dianelys Goldsmith MD PCP Allergies Comments Active Allergy Reactions Severity Noted Date No Known Allergies 01/11/2012 Medications End Date Status Medication Sig Dispensed Refills Start Date Active lurasidone (LATUDA) 20 mg Take one 30 tablet 2 Tab tabletIndications: tablet by 7 Bipolar 1 disorder mouth at dinner time with food.. Active triamcinolone (KENALOG) Apply to 80 g 0 0.025 % affected area 9 ointmentIndications: 2 times Dermatitis daily. Active SUMAtriptan (IMITREX) 50 Take 1 tablet 30 tablet 0 mg tabletIndications: by mouth at 9 Migraine without status onset of migrainosus, not headache. intractable, unspecified Repeat after migraine type 2 hours if needed. Maximum 200mg/24 hours.. Active amitriptyline (ELAVIL) 10 Take 1 tablet 30 tablet 1 mg tabletIndications: by mouth at 9 Migraine without status bedtime migrainosus, not nightly. intractable, unspecified migraine type Active ibuprofen (MOTRIN) 600 mg Take 1 tablet 30 tablet 0 tabletIndications: Acute by mouth 9 right-sided low back pain every 8 hours without sciatica as needed for Pain. Active cyclobenzaprine Take 1 tablet 30 tablet 0 (FLEXERIL) 10 mg by mouth 3 9 tabletIndications: Acute times daily right-sided low back pain as needed for without sciatica Muscle Spasms. 12/29/2017 Discontinued desogestrel-ethinyl Take 1 tablet 84 tablet 3 estradiol (VELIVET) by mouth 6 0.1/.125/.15-25 mg-mcg daily. tabletIndications: control counseling 12/29/2017 Discontinued vitamin Take 1 tablet 30 tablet 0 tabletIndications: by mouth 7 Incidental daily confirmed Pharmacist may select any Vitamin product covered on the patient's insurance for new rxs and refills. 12/29/2017 Discontinued clotrimazole (LOTRIMIN) 1 Apply 1-2 30 mL 0 % external drops to 7 solutionIndications: affected Tinea pedis, right nails 2 times a day. Use a nail file to keep nails thin. Treatment may take up to 1 year. 12/29/2017 Discontinued acetaminophen (TYLENOL) Take 1 tablet 30 tablet 0 500 mg tabletIndications: by mouth 7 Pain, dental every 6 hours as needed for Pain. 09/15/2018 metroNIDAZOLE (FLAGYL) Take 1 tablet 14 tablet 0 500 mg tabletIndications: by mouth 2 9 Vaginal discharge times daily for 7 days. 09/15/2018 benzonatate (TESSALON Take 1 20 capsule 0 PERLES) 100 mg capsule by 9 capsuleIndications: Acute mouth 3 times URI daily as needed for up to 7 days for Cough. Active Problems Problem Noted Date Tinea pedis, right 09/26/2016 Somnolence 11/26/2015 Homelessness 02/07/2015 Overview: Resident at [facility] BMI 29.0-29.9,adult 02/07/2015 Overview: Counseled on diet and encouraged weight management and adding exercise to daily activities as tolerated. Depression screening 02/07/2015 Overview: PHQ9-3, denies suicidal and homicidal ideations Bipolar 1 disorder 01/13/2015 Acne 01/08/2015 Intertrigo 01/08/2015 Anxiety disorder 01/05/2015 Opioid abuse 01/05/2015 Cocaine abuse 01/05/2015 Alcohol abuse 01/05/2015 Smoking 09/11/2012 Depression 12/15/2011 Encounters Care Team Description Date Type Specialty Beronica Grullon Physician Acute right-sided low back pain without sciatica (Primary Dx) 10/19/2018 Emergency Emergency Medicine 10/19/2018 Travel Alondra Lund, Resident Migraine without status migrainosus, not intractable, unspecified migraine type (Primary Dx); Declined smoking cessation; Encounter for screening mammogram for malignant neoplasm of breast 10/05/2018 Office Visit Family Practice Cynthia Cordova MD Vaginal discharge (Primary Dx); Acute URI; Dermatitis 09/08/2018 Office Visit Family Practice 09/08/2018 Travel Jono Estrada, SON Hepatitis C virus infection without hepatic coma, unspecified chronicity (Primary Dx) 04/27/2018 Office Visit Family Practice Tommy Dacosta Appointment Related Questions (reminder) 04/26/2018 Telephone Family Practice Shea Jeronimo MD Ope, Leeanna, Resident PMDD (premenstrual dysphoric disorder) (Primary Dx) 12/29/2017 Office Visit Family Practice after 11/27/2017 Immunizations Name Dates Previously Given Next Due Depo-provera 150mg Inj 07/02/2015, 01/11/2012 Influenza Vaccine 06/16/2015, 07/17/2012, 08/12/2011 PPD 11/04/2016, 08/08/2015 Tdap Tetanus, diphtheria, 07/17/2012, 08/12/2011 (Deferred: acellular pertussis Unavailable-Patient to return for vaccine later) Vaccine Family History Medical History Relation Name Comments [...] Comments: Has started and stopped several times Alcohol Use Drinks/Week oz/Week Comments Yes 48 Glasses of 28.8 wine Sex Assigned at Date Recorded Not on file Industry Job Start Date Occupation Not on file Not on file Not on file Travel End Travel History Travel Start No recent travel history available. Last Filed Vital Signs Time Taken Vital Sign Reading 10/19/2018 3:28 PM DIRECTOR LOAN Blood Pressure 126/78 10/19/2018 3:28 PM DIRECTOR LOAN Pulse 85 10/19/2018 3:28 PM DIRECTOR LOAN Temperature 36.6 C (97.8 F) 10/19/2018 3:28 PM DIRECTOR LOAN Respiratory Rate 18 10/19/2018 3:28 PM DIRECTOR LOAN Oxygen Saturation 99% - Inhaled Oxygen - Concentration 10/19/2018 11:49 AM DIRECTOR LOAN Weight 66.7 kg (147 lb) 10/05/2018 8:30 AM DIRECTOR LOAN Height 172.7 cm (5' 8") 10/05/2018 8:30 AM DIRECTOR LOAN Body Mass Index 22.35 Plan of Treatment Health Maintenance Due Date Last Done Comments Cervical Cancer Scrn (3 10/19/2016 10/19/2013 (Previously completed - Yrs) External), 01/11/2012 Breast Cancer Scrn 2017 (Yearly) IMM Influenza Seasonal 06/05/2018Jun to November (>/=19 yrs) Procedures Comments Procedure Name Priority Date/Time Associated Diagnosis WET MOUNT Routine 09/08/2018 Vaginal discharge 12:32 PM DIRECTOR LOAN AURELIA STAIN Routine 09/08/2018 Vaginal discharge 12:32 PM DIRECTOR LOAN CHLAM/GC DNA AMPLI Routine 09/08/2018 Vaginal discharge 12:20 PM DIRECTOR LOAN after 11/27/2017 Results * WET MOUNT (09/08/2018 12:32 PM DIRECTOR LOAN) Spec Vaginal [facility] Description MICROBIOLOGY Order Comments None [facility] MICROBIOLOGY Exam WBC's seen [facility] Epithelial cells MICROBIOLOGY Bacteria present Clue cells present No Trichomonas seen No yeast seen Report Status Final 09/08/2018 [facility] MICROBIOLOGY Specimen Genital, vaginal - Vaginal Performing Organization Address [facility] [place] [facility] MICROBIOLOGY * AURELIA STAIN (09/08/2018 12:32 PM DIRECTOR LOAN) Spec Vaginal [facility] Description MICROBIOLOGY Order Comments None [facility] MICROBIOLOGY Direct Exam No fungus seen by AURELIA [facility] MICROBIOLOGY Report Status Final 09/08/2018 [facility] MICROBIOLOGY Specimen Genital, vaginal - Vaginal Performing Organization Address [facility] Phone Number [facility] MICROBIOLOGY * CHLAM/GC DNA AMPLI (09/08/2018 12:20 PM DIRECTOR LOAN) Chlamydia trach Negative NEG BT DIAGNOSTIC IMMUNOLOGY N gonorrhoeae Negative NEG BT DIAGNOSTIC Comment: IMMUNOLOGY This test utilizes [employer] Aptima Combo 2 Assay for target amplification of rRNA for the qualitative detection of Chlamydia trachomatis and Neisseria gonorrhea. Spec Endovervical [facility] Description MAIN-STATION 2 Specimen Other (Specify in Comments) - Vaginal Swab Performing Organization Address [facility]/State/Zipcode Phone Number MISYS BT DIAGNOSTIC IMMUNOLOGY [facility] MAIN-STATION 2 after 11/27/2017 Insurance Type Payer Benefit Subscriber ID Effective Phone Address Plan / Dates Group [facility] PRESUMED INDIGENT PRESUMED xxxxxxxxx 2018- INDIGENT 2018 Advance Directives For more information, please contact: [address] [address] Date Inactivated Comments Code Status Date Activated 01/13/2015 4:30 PM Full Code 01/05/2015 3:18 AM 10/20/2010 5:31 PM Full Code 10/17/2010 1:51 AM 10/17/2010 1:51 AM Full Code 10/16/2010 3:49 PM
--- OUTSIDE RECORDS SUMMARY | 2019-02-28 05:11 | XMS REPORT | Clinical Summary ---
Author Author [facility] Organization [facility] Address Unknown Phone Unavailable Care Team Providers Care Rn Telephonic Name Role Phone Dianelys Goldsmith MD PCP [...] Somnolence 11/26/2015 Homelessness 02/07/2015 Overview: Resident at [facility] BMI 29.0-29.9,adult 02/07/2015 Overview: Counseled on [...] Dx) 12/29/2017 Office Visit Family Practice after 10/31/2017 Immunizations Name Dates Previously Given Next Due [...] Taken Vital Sign Reading 10/19/2018 3:28 PM INSULATION MECHANIC Blood Pressure 126/78 10/19/2018 3:28 PM INSULATION MECHANIC Pulse 85 10/19/2018 3:28 PM INSULATION MECHANIC Temperature 36.6 C (97.8 F) 10/19/2018 3:28 PM INSULATION MECHANIC Respiratory Rate 18 10/19/2018 3:28 PM INSULATION MECHANIC Oxygen Saturation 99% - Inhaled Oxygen - Concentration 10/19/2018 11:49 AM INSULATION MECHANIC Weight 66.7 kg (147 lb) 10/05/2018 8:30 AM INSULATION MECHANIC Height 172.7 cm (5' 8") 10/05/2018 8:30 AM INSULATION MECHANIC Body Mass Index 22.35 Plan of Treatment Care Team Description Date Type Specialty Karen Grullon NP [address] [place] [address] [phone] 11/02/2018 Office Visit Family Practice Health Maintenance Due Date Last Done Comments Cervical Cancer Scrn (3 10/19/2016 10/19/2013 (Previously completed - Yrs) External), 01/11/2012 Breast Cancer Scrn 2017 (Yearly) IMM Influenza Seasonal 06/05/2018Jun to November (>/=19 yrs) Procedures Comments Procedure Name Priority Date/Time Associated Diagnosis WET MOUNT Routine 09/08/2018 Vaginal discharge 12:32 PM INSULATION MECHANIC AURELIA STAIN Routine 09/08/2018 Vaginal discharge 12:32 PM INSULATION MECHANIC CHLAM/GC DNA AMPLI Routine 09/08/2018 Vaginal discharge 12:20 PM INSULATION MECHANIC after 10/31/2017 Results * WET MOUNT (09/08/2018 12:32 PM INSULATION MECHANIC) Spec Vaginal [facility] Description MICROBIOLOGY Order Comments None [facility] MICROBIOLOGY Exam WBC's seen [facility] Epithelial cells MICROBIOLOGY Bacteria present Clue cells present No Trichomonas seen No yeast seen Report Status Final 09/08/2018 [facility] MICROBIOLOGY Specimen Genital, vaginal - Vaginal Performing Organization Address City/[facility] Phone Number [facility] MICROBIOLOGY * AURELIA STAIN (09/08/2018 12:32 PM INSULATION MECHANIC) Spec Vaginal [facility] Description MICROBIOLOGY Order Comments None [facility] MICROBIOLOGY Direct Exam No fungus seen by AURELIA [facility] MICROBIOLOGY Report Status Final 09/08/2018 [facility] MICROBIOLOGY Specimen Genital, vaginal - Vaginal Performing Organization Address City/[facility] Phone Number [facility] MICROBIOLOGY * CHLAM/GC DNA AMPLI (09/08/2018 12:20 PM INSULATION MECHANIC) Chlamydia trach Negative NEG BT DIAGNOSTIC IMMUNOLOGY N gonorrhoeae Negative NEG BT DIAGNOSTIC Comment: IMMUNOLOGY This test utilizes H[employer] Aptima Combo 2 Assay for target amplification of rRNA for the qualitative detection of Chlamydia trachomatis and Neisseria gonorrhea. Spec Endovervical [facility] Description MAIN-STATION 2 Specimen Other (Specify in Comments) - Vaginal Swab Performing Organization Address City/State/Zipcode Phone Number MISYS BT DIAGNOSTIC IMMUNOLOGY [facility] MAIN-STATION 2 after 10/31/2017 Insurance Type Payer Benefit Subscriber ID Effective Phone Address Plan / Dates Group [facility] PRESUMED INDIGENT PRESUMED xxxxxxxxx 2018- INDIGENT 2018 Advance Directives For more information, please contact: [address] [address] Date Inactivated Comments Code Status Date Activated 01/13/2015 4:30 PM Full Code 01/05/2015 3:18 AM 10/20/2010 5:31 PM Full Code 10/17/2010 1:51 AM 10/17/2010 1:51 AM Full Code 10/16/2010 3:49 PM
--- OUTSIDE RECORDS SUMMARY | 2019-02-28 05:11 | XMS REPORT | Summary of Care ---
Author Organization Unknown Address Unknown Phone Unavailable Encounter AZUL Dowling(SKY) [id number] Date(s): 11/18/14 - 11/19/14 [facility] [address] [employer] provided by [facility] [employer] [place] [address]- Discharge Diagnosis: Suicidal ideations Discharge Diagnosis: Illicit Drug Use Discharge Diagnosis: Overdose Discharge Disposition: Home Physician Attending: Titus Lora MD Vital Signs 1 2 3 Most recent to oldest [Reference Range]: 170.18 cm (11/18/14 6:54 PM) Height 97.6 DegF (11/19/14 9:30 AM) 97.6 DegF (11/19/14 8:39 AM) 98.2 DegF (11/19/14 6:17 AM) Temperature Oral [96.4-99.1 DegF] 119/68 mmHg (11/19/14 9:30 AM) 119/68 mmHg (11/19/14 8:39 AM) 110/68 mmHg (11/19/14 6:17 AM) Blood Pressure [90-140/60-90 mmHg] 16 BRMIN (11/19/14 9:30 AM) 18 BRMIN (11/19/14 8:39 AM) 16 BRMIN (11/19/14 6:17 AM) Respiratory Rate [14-20 BRMIN] 86 bpm (11/19/14 9:30 AM) 88 bpm (11/19/14 8:39 AM) 86 bpm (11/19/14 6:17 AM) Peripheral Pulse Rate [60-100 bpm] 82.8 kg (11/18/14 6:54 PM) Weight 28.59 m2 (11/18/14 6:54 PM) Body Mass Index Problem List No data available for this section Allergies, Adverse Reactions, Alerts Substance Reaction Severity Status NKDA Active Medications No data available for this section Results ELECTROLYTES Most recent to 1 oldest [Reference Range]: Sodium Lvl [135-145 136 mEq/L mEq/L] (11/19/14 5:38 AM) Potassium Lvl 3.7 mEq/L [3.5-5.1 mEq/L] (11/19/14 5:38 AM) Chloride Lvl [95-109 104 mEq/L mEq/L] (11/19/14 5:38 AM) CO2 [24-32 mEq/L] 25 mEq/L (11/19/14 5:38 AM) AGAP [10.0-20.0 10.7 mEq/L mEq/L] (11/19/14 5:38 AM) CHEM PANEL Most recent to 1 oldest [Reference Range]: Creatinine Lvl 1.0 mg/dL [0.5-1.4 mg/dL] (11/19/14 5:38 AM) eGFR 83 mL/min/1.73m2 1 *NA* (11/19/14 5:38 AM) BUN [7-22 mg/dL] 16 mg/dL (11/19/14 5:38 AM) B/C Ratio [6-25] 16 (11/19/14 5:38 AM) Glucose Lvl [70-99 114 mg/dL 2 mg/dL] *HI* (11/19/14 5:38 AM) Total Protein 6.8 g/dL [6.4-8.4 g/dL] (11/19/14 5:38 AM) Albumin Lvl [3.5-5.0 2.8 g/dL g/dL] *LOW* (11/19/14 5:38 AM) Globulin [2.0-4.0 4.0 g/dL g/dL] (11/19/14 5:38 AM) A/G Ratio [0.7-1.6] 0.7 (11/19/14 5:38 AM) Calcium Lvl 8.3 mg/dL [8.5-10.5 mg/dL] *LOW* (11/19/14 5:38 AM) ALT [0-65 unit/L] 22 unit/L (11/19/14 5:38 AM) AST [0-37 unit/L] 14 unit/L (11/19/14 5:38 AM) Alk Phos [39-136 91 unit/L unit/L] (11/19/14 5:38 AM) Bili Total [0.2-1.3 0.2 mg/dL mg/dL] (11/19/14 5:38 AM) 1Result Comment: The eGFR is calculated using [...] from the National Kidney Disease Education Program ( NKDEP) which additionally recommends that when the eGFR is used in patients with extremes of body mass index for purposes of drug dosing, the eGFR should be mul tiplied by the estimated BMI. 2Interpretive Data: Adult reference range values reflect the clinical guidelines of the [place] [employer]. CARDIAC ENZYMES Most recent to 1 oldest [Reference Range]: Total CK [12-191 132 unit/L unit/L] (11/19/14 5:38 AM) DRUG SCREEN Most recent to 1 oldest [Reference Range]: U Amph Scr Positive [Negative] *ABN* (11/19/14 3:43 AM) U Padma Scr Negative [Negative] *NA* (11/19/14 3:43 AM) U Benzodia Scr Positive [Negative] *ABN* (11/19/14 3:43 AM) U Cocaine Scr Positive [Negative] *ABN* (11/19/14 3:43 AM) U Opiate Scr Negative [Negative] *NA* (11/19/14 3:43 AM) U Phencyc Scr Negative [Negative] *NA* (11/19/14 3:43 AM) U Cannab Scr Positive [Negative] *ABN* (11/19/14 3:43 AM) UDS Note See Note 3 (11/19/14 3:43 AM) 3Interpretive Data: Drugs reported as positive have [...] Methadone 300 ng/mL Urine alcohol 20 mg/dL TOXICOLOGY Most recent to 1 oldest [Reference Range]: Acetaminoph Lvl <2 [10-20] (11/19/14 5:38 AM) Salicylate Lvl <1.7 mg/dL [0.0-30.0 mg/dL] (11/19/14 5:38 AM) Etoh (%) <.003 % 4 *NA* (11/19/14 5:38 AM) Ethanol Lvl <3 mg/dL 5 *NA* (11/19/14 5:38 AM) 4Interpretive Data: Ethanol testing results should be used for medical purposes only. Negative Range: <0.003% Toxic Range: >0.25% 5Interpretive Data: Negative Range: <3 mg/dL Toxic Range: >250 mg/dL URINE CHEM Most recent to 1 oldest [Reference Range]: U Preg [Negative] Negative (11/19/14 3:43 AM) URINE AND STOOL Most recent to 1 oldest [Reference Range]: UA Turbidity [Clear] Clear (11/19/14 3:43 AM) UA Color [Yellow] Yellow *NA* (11/19/14 3:43 AM) UA pH [5.0-8.0] 6.0 (11/19/14 3:43 AM) UA Spec Grav 1.031 [<=1.030] *HI* (11/19/14 3:43 AM) UA Glucose Negative [Negative] (11/19/14 3:43 AM) UA Blood [Negative] Negative (11/19/14 3:43 AM) UA Ketones Negative [Negative] *NA* (11/19/14 3:43 AM) UA Protein Negative [Negative] (11/19/14 3:43 AM) UA Urobilinogen 2.0 EU/dL [0.1-1.0 EU/dL] *HI* (11/19/14 3:43 AM) UA Bili [Negative] Negative *NA* (11/19/14 3:43 AM) UA Leuk Est Negative [Negative] (11/19/14 3:43 AM) UA Nitrite Negative [Negative] (11/19/14 3:43 AM) UA WBC [None Seen 0-2 /HPF /HPF] (11/19/14 3:43 AM) UA RBC [0-2 /HPF] 0-2 /HPF (11/19/14 3:43 AM) UA Bacteria [None Few /HPF Seen /HPF] (11/19/14 3:43 AM) UA Sq Epi [Few /LPF] Moderate /LPF *ABN* (11/19/14 3:43 AM) Micro? Performed (11/19/14 3:43 AM) HEMATOLOGY Most recent to 1 oldest [Reference Range]: WBC [3.7-10.4 K/CMM] 8.1 K/CMM (11/19/14 5:38 AM) RBC [4.20-5.40 4.24 M/CMM M/CMM] (11/19/14 5:38 AM) Hgb [12.0-16.0 g/dL] 12.3 g/dL (11/19/14 5:38 AM) Hct [36.0-48.0 %] 38.1 % (11/19/14 5:38 AM) MCV [80.0-98.0 fL] 89.9 fL (11/19/14 5:38 AM) MCH [27.0-31.0 pg] 29.1 pg (11/19/14 5:38 AM) MCHC [32.0-36.0 32.4 g/dL g/dL] (11/19/14 5:38 AM) RDW [11.5-14.5 %] 14.6 % *HI* (11/19/14 5:38 AM) Platelet [133-450 409 K/CMM K/CMM] (11/19/14 5:38 AM) MPV [7.4-10.4 fL] 7.9 fL (11/19/14 5:38 AM) Segs [45.0-75.0 %] 50.7 % (11/19/14 5:38 AM) Lymphocytes 34.0 % [20.0-40.0 %] (11/19/14 5:38 AM) Monocytes [2.0-12.0 7.9 % %] (11/19/14 5:38 AM) Eosinophils [0.0-4.0 4.4 % %] *HI* (11/19/14 5:38 AM) Basophils [0.0-1.0 3.0 % %] *HI* (11/19/14 5:38 AM) Segs-Bands # 4.1 K/CMM [1.5-8.1 K/CMM] (11/19/14 5:38 AM) Lymphocytes # 2.8 K/CMM [1.0-5.5 K/CMM] (11/19/14 5:38 AM) Monocytes # [0.0-0.8 0.6 K/CMM K/CMM] (11/19/14 5:38 AM) Eosinophils # 0.4 K/CMM [0.0-0.5 K/CMM] (11/19/14 5:38 AM) Basophils # [0.0-0.2 0.2 K/CMM K/CMM] (11/19/14 5:38 AM) Immunizations No data available for this section Procedures Procedure Date Related Diagnosis Body Site section Social History Social History Type Response Smoking Status Never smoker; Exposure to Tobacco Smoke None; Cigarette Smoking Last 365 Days No; Reg Smoking Cessation Counseling No Assessment and Plan No data available for this section
--- OUTSIDE RECORDS SUMMARY | 2019-02-28 05:12 | XMS REPORT | Clinical Summary ---
Author Author [facility] Organization [facility] Address Unknown Phone Unavailable Care Team Providers Care Haunted History Tour Guide Name Role Phone Dianelys Goldsmith MD PCP Allergies Comments Active Allergy Reactions Severity Noted Date No Known Allergies 01/11/2012 Medications End Date Status Medication Sig Dispensed Refills Start Date Active lurasidone (LATUDA) 20 mg Take one 30 tablet 2 Tab tabletIndications: tablet by 7 Bipolar 1 disorder mouth at dinner time with food.. 09/15/2018 Active metroNIDAZOLE (FLAGYL) Take 1 tablet 14 tablet 0 500 mg tabletIndications: by mouth 2 9 Vaginal discharge times daily for 7 days. Active triamcinolone (KENALOG) Apply to 80 g 0 0.025 % affected area 9 ointmentIndications: 2 times Dermatitis daily. 09/15/2018 Active benzonatate (TESSALON Take 1 20 capsule 0 PERLES) 100 mg capsule by 9 capsuleIndications: Acute mouth 3 times URI daily as needed for up to 7 days for Cough. 12/29/2017 Discontinued desogestrel-ethinyl Take 1 tablet 84 [...] every 6 hours as needed for Pain. 10/20/2017 benzonatate (TESSALON Take 1 20 capsule 0 PERLES) 100 mg capsule by 8 capsuleIndications: Viral mouth 3 times upper respiratory tract daily as infection, Chronic needed for up hepatitis C without to 7 days for hepatic coma Cough. Active Problems Problem Noted Date Tinea pedis, right 09/26/2016 Somnolence 11/26/2015 Homelessness 02/07/2015 Overview: Resident at [facility] BMI 29.0-29.9,adult 02/07/2015 Overview: Counseled on diet and encouraged weight management and adding exercise to daily activities as tolerated. Depression screening 02/07/2015 Overview: PHQ9-3, denies suicidal and homicidal ideations Bipolar 1 disorder 01/13/2015 Acne 01/08/2015 Intertrigo 01/08/2015 Anxiety disorder 01/05/2015 Opioid abuse 01/05/2015 Cocaine abuse 01/05/2015 Alcohol abuse 01/05/2015 Smoking 09/11/2012 Depression 12/15/2011 Comments Yes Encounters Care Team Description Date Type Specialty Cynthia Cordova MD Acute URI (Primary Dx); Vaginal discharge; Dermatitis 09/08/2018 Office Visit Family Practice 09/08/2018 Travel Jono Estrada W, [employer] Hepatitis C virus infection without hepatic coma, unspecified chronicity (Primary Dx) 04/27/2018 Office Visit Family Practice Tommy Dacosta Appointment Related Questions (reminder) 04/26/2018 Telephone Family Practice Shea Jeronimo MD Ope, Leeanna, Resident PMDD (premenstrual dysphoric disorder) (Primary Dx) 12/29/2017 Office Visit Family Practice Shonda Alves, Results 10/17/2017 Telephone Family Practice Dianelys Goldsmith MD Topaldjikian, Narine, Resident Viral upper respiratory tract infection (Primary Dx); Chronic hepatitis C without hepatic coma; Refused influenza vaccine 10/13/2017 Office Visit Family Practice after 09/07/2017 Immunizations Name Dates Previously Given Next Due [...] Comments Yes 48 Glasses of 28.8 wine Comments Yes Sex Assigned at Date Recorded Not on file Industry Job Start Date Occupation Not on file Not on file Not on file Travel End Travel History Travel Start No recent travel history available. Last Filed Vital Signs Time Taken Vital Sign Reading 09/08/2018 11:02 AM LEAD GENERATION REPRESENTATIVE Blood Pressure 117/84 09/08/2018 11:02 AM LEAD GENERATION REPRESENTATIVE Pulse 73 09/08/2018 11:02 AM LEAD GENERATION REPRESENTATIVE Temperature 36.5 C (97.7 F) 09/08/2018 11:02 AM LEAD GENERATION REPRESENTATIVE Respiratory Rate 16 - Oxygen Saturation - - Inhaled Oxygen - Concentration 09/08/2018 11:02 AM LEAD GENERATION REPRESENTATIVE Weight 60.8 kg (134 lb) 09/08/2018 11:02 AM LEAD GENERATION REPRESENTATIVE Height 172.7 cm (5' 8") 09/08/2018 11:02 AM LEAD GENERATION REPRESENTATIVE Body Mass Index 20.37 Plan of Treatment Health Maintenance Due Date Last Done Comments Cervical Cancer Scrn (3 10/19/2016 10/19/2013 (Previously completed - Yrs) External), 01/11/2012 Breast Cancer Scrn 2017 (Yearly) IMM Influenza Seasonal 06/05/2018 Oct to November (>/=19 yrs) Procedures Comments Procedure Name Priority Date/Time Associated Diagnosis CARDIOVASCULAR RISK Routine 10/13/2017 ASSESSMENT 2:30 PM LEAD GENERATION REPRESENTATIVE PROTHROMBIN AND PARTIAL Routine 10/13/2017 Chronic hepatitis C THROMBOPLASTIN TIMES 2:30 PM LEAD GENERATION REPRESENTATIVE without hepatic coma HEPATITIS C VIRUS (HCV), Routine 10/13/2017 Chronic hepatitis C QUANT, RNA (REALTIME) 2:30 PM LEAD GENERATION REPRESENTATIVE without hepatic coma LIPID PANEL Routine 10/13/2017 Chronic hepatitis C 2:30 PM LEAD GENERATION REPRESENTATIVE without hepatic coma COMPREHENSIVE METABOLIC Routine 10/13/2017 Chronic hepatitis C PANEL(14) 2:30 PM LEAD GENERATION REPRESENTATIVE without hepatic coma CBC WITH Routine 10/13/2017 Chronic hepatitis C DIFFERENTIAL/PLATELET 2:30 PM LEAD GENERATION REPRESENTATIVE without hepatic coma after 09/07/2017 Results * COMPREHENSIVE METABOLIC PANEL(14) (10/13/2017 2:30 PM LEAD GENERATION REPRESENTATIVE) Pathologist [facility] GLUCOSE, SERUM 74 65 - 99 mg/dL [facility] 01 Urea Nitrogen 11 6 - 24 mg/dL [facility] 01 CREATININE, 0.78 0.57 - 1.00 mg/dL [facility] 01 SERUM GFR, ESTIM, NON 95 >59 mL/min/1.73 [facility] 01 AFR-AM GFR, Estim, 110 >59 mL/min/1.73 [facility] 01 Afr-Am BUN/Creatinine 14 9 - 23 [facility] 01 Ratio Sodium, Serum 141 134 - 144 mmol/L [facility] 01 Potassium, 4.4 3.5 - 5.2 mmol/L [facility] 01 Serum Chloride, Serum 99 96 - 106 mmol/L [facility] 01 Carbon Dioxide, 23 18 - 29 mmol/L [facility] 01 Total Calcium, Serum 8.4 (L) 8.7 - 10.2 mg/dL [facility] 01 T Protein 7.4 6.0 - 8.5 g/dL [facility] 01 Albumin, Serum 4.2 3.5 - 5.5 g/dL [facility] 01 Globulin, Total 3.2 1.5 - 4.5 g/dL [facility] 01 A/G Ratio 1.3 1.2 - 2.2 [facility] 01 T Bilirubin 0.4 0.0 - 1.2 mg/dL [facility] 01 Alk Phos 96 39 - 117 IU/L [facility] 01 AST 21 0 - 40 IU/L [facility] 01 ALT (SGPT) 20 0 - 32 IU/L [facility] 01 Narrative Performed At Performed at: [facility] [address] [place], [place] [id number] Mine Engineering Superintendent: Reji Ma MD, Phone:[phone] Performing Organization Address [facility] Phone Number [facility] [address] [place] [address] [facility] 01 * PROTHROMBIN AND PARTIAL THROMBOPLASTIN TIMES (10/13/2017 2:30 PM LEAD GENERATION REPRESENTATIVE) INR 1.0 0.8 - 1.2 [facility] Comment: Reference interval is for non-anticoagulated patients. Suggested INR therapeutic range for Vitamin K antagonist therapy: Standard Dose (moderate intensity therapeutic range): 2.0 - 3.0 Higher intensity therapeutic range 2.5 - 3.5 Prothrombin 10.1 9.1 - 12.0 sec [facility] 01 Time APTT 31 24 - 33 sec [facility] Comment: This test has not been validated for monitoring unfractionated heparin therapy. aPTT-based therapeutic ranges for unfractionated heparin therapy have not been established. For general guidelines on Heparin monitoring, refer to the [facility] Directory of Services. Specimen Blood Narrative Performed At Performed at: [facility] [place], [id number] Mine Engineering Superintendent: Reji Ma MD, Phone:[phone] Performing Organization Address [facility] Phone Number [facility] [address] [place] [address] [facility] 01 * CBC WITH DIFFERENTIAL/PLATELET (10/13/2017 2:30 PM LEAD GENERATION REPRESENTATIVE) WBC 4.8 3.4 - 10.8 x10E3/uL [facility] 01 RBC 4.58 3.77 - 5.28 x10E6/uL [facility] 01 Hemoglobin 14.1 11.1 - 15.9 g/dL [facility] 01 Hematocrit 41.7 34.0 - 46.6 % [facility] 01 MCV 91 79 - 97 fL [facility] 01 MCH 30.8 26.6 - 33.0 pg [facility] 01 MCHC 33.8 31.5 - 35.7 g/dL [facility] 01 RDW 14.5 12.3 - 15.4 % [facility] 01 Platelet 327 150 - 379 x10E3/uL [facility] 01 Neutrophil 47 Not Estab. % [facility] 01 Lymphocyte 37 Not Estab. % [facility] 01 Monocyte 13 Not Estab. % [facility] 01 Eosinophil 2 Not Estab. % [facility] 01 Basophil 1 Not Estab. % [facility] 01 Neutrophil, Abs 2.3 1.4 - 7.0 x10E3/uL [facility] 01 Lymphocyte, Abs 1.8 0.7 - 3.1 x10E3/uL [facility] 01 Monocyte, Abs 0.6 0.1 - 0.9 x10E3/uL [facility] 01 Eosinophil, Abs 0.1 0.0 - 0.4 x10E3/uL [facility] 01 Basophil, Abs 0.0 0.0 - 0.2 x10E3/uL [facility] 01 Pct Immat Gran 0 Not Estab. % [facility] 01 Absol Immat 0.0 0.0 - 0.1 x10E3/uL [facility] 01 Gran Specimen Blood Narrative Performed At Performed at: - [facility] [address] [place], [id number] Mine Engineering Superintendent: Reji Ma MD, Phone:[phone] Performing Organization Address [facility] Phone Number [facility] [address] [place] [address] [facility] * CARDIOVASCULAR RISK ASSESSMENT (10/13/2017 2:30 PM LEAD GENERATION REPRESENTATIVE) [facility] Interpretation NoteComment: Supplemental [facility] 02 report is available. Narrative Performed At Performed at:[address] [employer] [facility] [address] [facility], [id number] Mine Engineering Superintendent: Leopoldo Melo PhD, Phone:[phone] Performing Organization Address [facility] Phone Number [facility] [address] [place] [address] [facility] 02 * LIPID PANEL (10/13/2017 2:30 PM LEAD GENERATION REPRESENTATIVE) Pathologist [facility] Cholestrol, 130 100 - 199 mg/dL [facility] 01 Total Triglyceride 63 0 - 149 mg/dL [facility] 01 HDL 52 >39 mg/dL [facility] 01 VLDL Cholestrol 13 5 - 40 mg/dL [facility] 01 Calc LDL Cholestrol 65 0 - 99 mg/dL [facility] 01 Calc Narrative Performed At Performed at:01 - [facility] [address] [place], [id number] Mine Engineering Superintendent: Reji Ma MD, Phone:[phone] Performing Organization Address [facility] Phone Number [facility] [address] [place], [place] [id number] 145 [facility] 01 * HEPATITIS C VIRUS (HCV), QUANT, RNA (REALTIME) (10/13/2017 2:30 PM LEAD GENERATION REPRESENTATIVE) Hepatitis C 412,295 IU/mL [facility] 01 Quantitation HCV log10 5.615 log10 IU/mL [facility] 01 Test Comment [facility] 01 Information: Comment: The quantifiable range of this assay is 12 to 100,000,000 IU/mL for genotypes 1-6 and the limit of detection of the assay is 12 IU/mL. Narrative Performed At Performed at:01 - [facility] [address] [place], [id number] Mine Engineering Superintendent: Filiberto Benavides MD, Phone:[phone] Performing Organization Address [facility] Phone Number [facility] [address] [place], [place] [phone] [facility] 01 after 09/07/2017 Insurance Type Payer Benefit Subscriber ID Effective Phone Address Plan / Dates Group [facility] xxxxxxxxx 2017-7 [address] [facility] [id number] [place] [address] Advance Directives For more information, please contact: [address] [address] Date Inactivated Comments Code Status Date Activated 01/13/2015 4:30 PM Full Code 01/05/2015 3:18 AM 10/20/2010 5:31 PM Full Code 10/17/2010 1:51 AM 10/17/2010 1:51 AM Full Code 10/16/2010 3:49 PM
--- OUTSIDE RECORDS SUMMARY | 2019-02-28 05:12 | XMS REPORT | Clinical Summary ---
Author Author [facility] Organization [facility] Address Unknown Phone Unavailable Care Team Providers Care Vp Of Customer Experience Strategy Name Role Phone Dianelys Goldsmith MD PCP [...] hours if needed. Maximum 200mg/24 hours.. Active ibuprofen (MOTRIN) 600 mg Take 1 [...] Tobacco directed use disorder every 24 hours. 02/15/2019 Active nitrofurantoin Take 1 14 capsule 0 (MACRODANTIN) 100 mg capsule by 9 capsuleIndications: Acute mouth 2 times cystitis without daily for 7 hematuria days. 09/15/2018 metroNIDAZOLE (FLAGYL) Take 1 tablet 14 [...] migrainosus, not nightly. intractable, unspecified migraine type 01/24/2019 Discontinued amitriptyline (ELAVIL) 10 Take 1 tablet 60 tablet 1 mg tabletIndications: by mouth at 9 Migraine without status bedtime migrainosus, not nightly. intractable, unspecified migraine type Active Problems Problem Noted Date Chronic hepatitis C without hepatic coma 02/08/2019 Tinea pedis, right 09/26/2016 Somnolence 11/26/2015 Homelessness 02/07/2015 Overview: Resident at [facility] BMI 29.0-29.9,adult 02/07/2015 Overview: Counseled on diet and encouraged weight management and adding exercise to daily activities as tolerated. Depression screening 02/07/2015 Overview: PHQ9-3, denies suicidal and homicidal ideations Bipolar 1 disorder 01/13/2015 Acne 01/08/2015 Intertrigo 01/08/2015 Anxiety disorder 01/05/2015 Opioid abuse 01/05/2015 Cocaine abuse 01/05/2015 Alcohol abuse 01/05/2015 Smoking 09/11/2012 Depression 12/15/2011 Encounters Care Team Description Date Type Specialty Crystal Leggett, Counselor Encounter for tobacco use [...] Homelessness 01/24/2019 Office Visit Family Practice 01/24/2019 Travel Alondra Lund, Resident Refill Request 01/11/2019 Telephone Family Practice Prerna Patel Refill Request 01/05/2019 Telephone Family Practice Beronica Grullon Physician Acute right-sided low back pain without sciatica (Primary Dx) 10/19/2018 Emergency Emergency Medicine 10/19/2018 Travel Alondra Lund, Migraine without status migrainosus, not intractable, unspecified [...] Questions (reminder) 04/26/2018 Telephone Family Practice after 02/11/2018 Immunizations Name Administration Dates Next Due Depo-provera [...] Signs Reading Time Taken Comments Vital Sign 113/76 02/08/2019 8:23 AM CDT Blood Pressure 70 02/08/2019 8:23 AM CDT Pulse 36.6 C (97.8 F) 02/08/2019 8:23 AM CDT Temperature 18 10/19/2018 3:28 PM PIN SETTER Respiratory Rate 99% 10/19/2018 3:28 PM PIN SETTER Oxygen Saturation - - Inhaled Oxygen Concentration 67.9 kg (149 lb 9.6 oz) 02/08/2019 8:23 AM CDT Weight 172.7 cm (5' 8") 02/08/2019 8:23 AM CDT Height 22.75 02/08/2019 8:23 AM CDT Body Mass Index Plan of Treatment Care Team Description Date Type Specialty Kari Smith NP [address] [place] [address] Follow Up / Medication 02/22/2019 Office Visit Family Practice Health Maintenance Due Date Last Done Comments Cervical Cancer Scrn (3 10/19/2016 10/19/2013 (Previously completed - Yrs) External), 01/11/2012 Breast Cancer Scrn 2017 (Yearly) IMM Influenza Seasonal 06/05/2019 Oct to November (>/=19 yrs) Procedures Comments Procedure Name Priority Date/Time Associated Diagnosis POC URINE -FQHC Routine 02/08/2019 Urinary frequency MANUALLY ENTERED POC HIV RAPID 1/2-FQHC Routine 02/08/2019 Screening for HIV (human MANUALLY [...] DIFFERENTIAL/PLATELET 9:18 AM CDT without hepatic coma [id number] 7+ALC-UNBUND Routine 01/24/2019 Chronic hepatitis C 9:18 [...] Routine 09/08/2018 Vaginal discharge AURELIA 12:32 PM PIN SETTER AURELIA STAIN Routine 09/08/2018 Vaginal discharge 12:32 PM PIN SETTER CHLAM/GC DNA AMPLI Routine 09/08/2018 Vaginal discharge 12:20 PM PIN SETTER after 02/11/2018 Results * POC URINE DIPSTICK W/O MICRO-FQHC MANUALLY ENTERED (02/08/2019) Blood POC Neg Urobilinogen 4 POC Bilirubin POC Neg Protein POC 30 Nitrate POC Pos Ketone POC Neg Glucose POC Neg Ph POC 6 5 Spec Connelly 1.015 POC Leukocyte POC Neg Specimen Urine * POC URINE -[facility] MANUALLY ENTERED (02/08/2019) [facility] POC Negative Specimen * POC HIV RAPID 1/2-[facility] MANUALLY ENTERED (02/08/2019) [facility] Rapid HIV 1/2 Negative Specimen * COMPREHENSIVE METABOLIC PANEL(14) (01/24/2019 9:18 AM CDT) [facility] Glucose, Serum 82 65 - 99 [...] Specimen Narrative Performed At Performed at: - [facility] [address] [place], [id number] Drywall Taper Helper: Reji Ma MD, Phone:[phone] Performing Organization Address [facility] Phone Number [facility] [address] [place] [address] 145 [facility] 01 * HCV RT-PCR QUANT (NON-GRAPH) (01/24/2019 9:18 AM CDT) Pathologist [facility] Hepatitis C 475,000 IU/mL [facility] 02 Quantitation HCV log10 5.677 log10 IU/mL [facility] 02 Test CommentComment: The [facility] 02 Information: quantitative range of this assay is 15 IU/mL to 100 million IU/mL. Specimen Narrative Performed At Performed at:02 - [facility] [address] [place], [place] [id number] Drywall Taper Helper: Kelsy Salomon MD, Phone:[phone] Performing Organization Address [facility] Phone Number [facility] [address] [place] [address] 145 [facility] 02 * HEP B CORE AB,TOT (01/24/2019 9:18 AM CDT) [facility] Hep B Core Ab, Negative Negative [facility] 01 Tot Specimen Narrative Performed At Performed at: - [facility] [place], [id number] Drywall Taper Helper: Reji Ma MD, Phone:[phone] Performing Organization Address [facility] Phone Number [facility] [address] [place] [address] 145 [facility] 01 * AFP,SERUM,TUMOR MARKER (01/24/2019 9:18 AM CDT) [facility] AFP,Serum,Tumor 1.1 0.0 - 8.3 ng/mL [facility] 01 Marker Comment: [employer] Electrochemiluminescence Immunoassay (ECLIA) Values obtained with different assay methods or kits cannot be used interchangeably.Results cannot be interpreted as absolute evidence of the presence or absence of malignant disease. This test is not interpretable in females. Specimen Narrative Performed At Performed at:[address] [place] [address] [facility] [address] [place], [place] [id number] Drywall Taper Helper: Reji Ma MD, Phone:[phone] Performing Organization Address [facility] Phone Number [facility] [address] [place], [place] [phone] [facility] 01 * HCV ANTIBODY (01/24/2019 9:18 AM CDT) Hep C Virus Ab >11.0 (H) 0.0 - 0.9 s/co ratio [facility] 01 Comment: Negative: < 0.8 Indeterminate: 0.8 - 0.9 Positive: > 0.9 The CDC recommends that a positive HCV antibody result be followed up with a HCV Nucleic Acid Amplification test (702527). Specimen Narrative Performed At Performed at:[address] [place] [address] [facility] [address] [place], [place] [id number] Drywall Taper Helper: Reji Ma MD, Phone:[phone] Performing Organization Address [facility] Phone Number [facility] [address] [place], [place] [phone] [facility] 01 * PROTHROMBIN AND PARTIAL [...] Services. Specimen Blood Narrative Performed At Performed at:[address] [place] [address] [facility] [employer] [place], [place] Drywall Taper Helper: Reji Ma MD, Phone:[phone] Performing Organization Address City/State/Zipcode Phone Number [facility] [address] [facility] [place] [address] 145 [facility] 01 * CBC [...] (Abs) Specimen Blood Narrative Performed At Performed at:01 - [facility] [address] [place], [place] Drywall Taper Helper: Reji Ma MD, Phone:[phone] Performing Organization Address [facility] Phone Number [facility] [address] [place], [place] [phone] [facility] 01 * HEP B SURFACE AB (01/24/2019 9:18 AM CDT) [facility] Hep B Surface Reactive [facility] 01 Ab, Qual Comment: No n Reactive: Inconsistent with immunity, less than 10 mIU/mL Re active: Consistent with immunity, grea ter than 9.9 mIU/mL Specimen Blood Narrative Performed At Performed at:01 [facility] [address] [place], [place] [id number] Drywall Taper Helper: Reji Ma MD, Phone:[phone] Performing Organization Address [facility] Phone Number [facility] [address] [place] [address] 145 [facility] 01 * HBSAG SCREEN (01/24/2019 9:18 AM CDT) [facility] HBsAg Screen Negative Negative [facility] 01 Specimen Narrative Performed At Performed at: [facility] [place], [place] Drywall Taper Helper: Reji Ma MD, Phone:[phone] Performing Organization Address [facility] Phone Number [facility] [address] [place], [place] [phone] [facility] 01 * HEMOGLOBIN A1C (01/24/2019 9:18 AM CDT) [facility] Hemoglobin A1c 5.5 4.8 - 5.6 % [facility] 01 Comment: Prediabetes: 5.7 - 6.4 Diabetes: >6.4 Glycemic control for adults with diabetes: <7.0 Specimen Blood Narrative Performed At Performed at:01 [facility] [place], [place] Drywall Taper Helper: Reji Ma MD, Phone:[phone] Performing Organization Address [facility] Phone Number [facility] [address] [place] [address] 145 [facility] 01 * LIPID PANEL (01/24/2019 9:18 AM CDT) Cholestrol, 141 100 - 199 mg/dL [facility] 01 Total Triglyceride 66 0 - 149 mg/dL [facility] 01 HDL 63 >39 mg/dL [facility] 01 VLDL Cholestrol 13 5 - 40 mg/dL [facility] 01 Calc LDL Cholestrol 65 0 - 99 mg/dL [facility] 01 Calc Specimen Narrative Performed At Performed at:01 - [facility] [address] [place], [place] [id number] Drywall Taper Helper: Reji Ma MD, Phone:[phone] Performing Organization Address [facility] Phone Number [facility] [address] [place], [place] [phone] [facility] 01 * THYROID CASCADE PROFILE (01/24/2019 9:18 AM CDT) Pathologist [facility] TSH 0.863 0.450 - 4.500 uIU/mL [facility] 01 Specimen Blood Narrative Performed At Performed at: - [facility] [address] [place], [place] [id number] Drywall Taper Helper: Reji Ma MD, Phone:[phone] Performing Organization Address [facility] Phone Number [facility] [address] [place], [place] [phone] [facility] 01 * HEPATITIS C VIRUS (HCV) GENOTYPING, NONREFLEX (01/24/2019 9:18 AM CDT) Pathologist [facility] Hepatitis C 1b [facility] 02 Genotype Please note: Comment [facility] 02 [...] research. Specimen Blood Narrative Performed At Performed at: - [facility] [address] [place], [place] [id number] Drywall Taper Helper: Kelsy Salomon MD, Phone:[phone] Performing Organization Address [facility] Phone Number [facility] [address] [place] [address] 145 [facility] 02 * HEPATITIS C VIRUS [...] developed and its performance characteristics determined by [employer].It has not been cleared or approved by the Food and Drug Administration.The FDA has determined that such clearance or approval is not necessary. For questions regarding this report please contact customer service at . Specimen Narrative Performed At Performed at:02 - [facility] [address] [place], [id number] Drywall Taper Helper: Kelsy Salomon MD, Phone:[phone] Performing Organization Address City/State/Zipcode Phone Number [facility] [address] [place] [address] 145 [facility] * [id number] 7+ALC-UNBUND (01/24/2019 9:18 AM CDT) Amphetamines, NegativeComment: Amphetamine Ycncse=2718 ng/mL [facility] 01 Urine test includes Amphetamine and Methamphetamine. Barbiturate Negative Uawrba=114 ng/mL [facility] 01 Benzodiazepines Negative Gcyonq=410 ng/mL [facility] 01 Cannabinoid Negative Cutoff=50 ng/mL [facility] 01 Cocaine Negative Sngheg=540 ng/mL [facility] 01 (Metab.) Opiates NegativeComment: Opiate test Mykcgl=944 ng/mL [facility] 01 includes Codeine and Morphine only. Phencyclidine Negative Cutoff=25 ng/mL [facility] 01 Ethanol, Urine Negative Cutoff=0.020 % [facility] 01 Specimen Narrative Performed At Performed at:01 [facility] [address] [place], [place] Drywall Taper Helper: Reji Ma MD, Phone:[phone] Performing Organization Address City/[facility]/Zipcode Phone Number [facility] [address] [place] [address] 145 [facility] 01 * WET MOUNT (09/08/2018 12:32 PM PIN SETTER) Spec Vaginal [facility] Description MICROBIOLOGY Order Comments None [facility] MICROBIOLOGY Exam WBC's seen [facility] Epithelial cells MICROBIOLOGY Bacteria present Clue cells present No Trichomonas seen No yeast seen Report Status Final 09/08/2018 [facility] MICROBIOLOGY Specimen Genital, vaginal - Vaginal Performing Organization Address [facility]/Zipcode Phone Number MISYS LB MICROBIOLOGY * AURELIA STAIN (09/08/2018 12:32 PM PIN SETTER) Spec Vaginal [facility] Description MICROBIOLOGY Order Comments None [facility] MICROBIOLOGY Direct Exam No fungus seen by AURELIA [facility] MICROBIOLOGY Report Status Final 09/08/2018 [facility] MICROBIOLOGY Specimen Genital, vaginal - Vaginal Performing Organization Address [facility] Phone Number M[facility] MICROBIOLOGY * CHLAM/GC DNA AMPLI (09/08/2018 12:20 PM PIN SETTER) Chlamydia trach Negative NEG BT DIAGNOSTIC IMMUNOLOGY N gonorrhoeae Negative NEG BT DIAGNOSTIC Comment: IMMUNOLOGY This test utilizes [employer] Aptima Combo 2 Assay for target amplification of rRNA for the qualitative detection of Chlamydia trachomatis and Neisseria gonorrhea. Spec Endovervical [facility] Description MAIN-STATION 2 Specimen Other (Specify in Comments) - Vaginal Swab Performing Organization Address [facility] Phone Number MISYS BT DIAGNOSTIC IMMUNOLOGY [facility] MAIN-STATION 2 after 02/11/2018 Advance Directives Date Inactivated Comments Code Status Date Activated 01/13/2015 4:30 PM Full Code 01/05/2015 3:18 AM 10/20/2010 5:31 PM Full Code 10/17/2010 1:51 AM 10/17/2010 1:51 AM Full Code 10/16/2010 3:49 PM
--- OUTSIDE RECORDS SUMMARY | 2019-02-28 05:13 | XMS REPORT | Clinical Summary ---
Author Author [facility] Organization [facility] Address Unknown Phone Unavailable Care Team Providers Care Ammonia Technician Name Role Phone Dianelys Goldsmith MD PCP [...] migrainosus, not nightly. intractable, unspecified migraine type 12/29/2017 Discontinued desogestrel-ethinyl Take 1 tablet 84 [...] to 7 days for hepatic coma Cough. 09/15/2018 metroNIDAZOLE (FLAGYL) Take 1 tablet 14 [...] Somnolence 11/26/2015 Homelessness 02/07/2015 Overview: Resident at [facility] BMI 29.0-29.9,adult 02/07/2015 Overview: Counseled on diet and encouraged weight management and adding exercise to daily activities as tolerated. Depression screening 02/07/2015 Overview: PHQ9-3, denies suicidal and homicidal ideations Bipolar 1 disorder 01/13/2015 Acne 01/08/2015 Intertrigo 01/08/2015 Anxiety disorder 01/05/2015 Opioid abuse 01/05/2015 Cocaine abuse 01/05/2015 Alcohol abuse 01/05/2015 Smoking 09/11/2012 Depression 12/15/2011 Encounters Care Team Description Date Type Specialty 10/19/2018 Emergency Emergency Medicine 10/19/2018 Travel Alondra Lund Resident Migraine without status migrainosus, not intractable, unspecified migraine type (Primary Dx); Declined smoking cessation; Encounter for screening mammogram for malignant neoplasm of breast 10/05/2018 Office Visit Family Practice Cynthia Cordova MD Vaginal discharge (Primary Dx); Acute URI; Dermatitis 09/08/2018 Office Visit Family Practice 09/08/2018 Travel Jnoo Estrada, PATCH MACHINE OPERATOR Hepatitis C virus infection without hepatic coma, unspecified chronicity (Primary Dx) 04/27/2018 Office Visit Family Practice Tommy Dacosta Appointment Related Questions (reminder) 04/26/2018 Telephone Family Practice Shea Jeronimo MD Ope, Leeanna, Resident PMDD (premenstrual dysphoric disorder) (Primary Dx) 12/29/2017 Office Visit Family Practice after 10/18/2017 Immunizations Name Dates Previously Given Next Due [...] Vital Signs Time Taken Vital Sign Reading 10/05/2018 8:30 AM KITCHEN AIDE Blood Pressure 119/66 10/05/2018 8:30 AM KITCHEN AIDE Pulse 75 10/05/2018 8:30 AM KITCHEN AIDE Temperature 36.6 C (97.9 F) 10/05/2018 8:30 AM KITCHEN AIDE Respiratory Rate 18 - Oxygen Saturation - - Inhaled Oxygen - Concentration 10/05/2018 8:30 AM KITCHEN AIDE Weight 61.2 kg (135 lb) 10/05/2018 8:30 AM KITCHEN AIDE Height 172.7 cm (5' 8") 10/05/2018 8:30 AM KITCHEN AIDE Body Mass Index 20.53 Plan of Treatment Health Maintenance Due Date Last Done Comments Cervical Cancer Scrn (3 10/19/2016 10/19/2013 (Previously completed - Yrs) External), 01/11/2012 Breast Cancer Scrn 2017 (Yearly) IMM Influenza Seasonal 06/05/2018 Oct to November (>/=19 yrs) Procedures Comments Procedure Name Priority Date/Time Associated Diagnosis WET MOUNT Routine 09/08/2018 Vaginal discharge 12:32 PM KITCHEN AIDE AURELIA STAIN Routine 09/08/2018 Vaginal discharge 12:32 PM KITCHEN AIDE CHLAM/GC DNA AMPLI Routine 09/08/2018 Vaginal discharge 12:20 PM KITCHEN AIDE after 10/18/2017 Results * WET MOUNT (09/08/2018 12:32 PM KITCHEN AIDE) Spec Vaginal [facility] Description MICROBIOLOGY Order Comments None [facility] MICROBIOLOGY Exam WBC's seen [facility] Epithelial cells MICROBIOLOGY Bacteria present Clue cells present No Trichomonas seen No yeast seen Report Status Final 09/08/2018 [facility] MICROBIOLOGY Specimen Genital, vaginal - Vaginal Performing Organization Address [facility] Phone Number MISYS LB MICROBIOLOGY * AURELIA STAIN (09/08/2018 12:32 PM KITCHEN AIDE) Spec Vaginal [facility] Description MICROBIOLOGY Order Comments None [facility] MICROBIOLOGY Direct Exam No fungus seen by AURELIA [facility] MICROBIOLOGY Report Status Final 09/08/2018 [facility] MICROBIOLOGY Specimen Genital, vaginal - Vaginal Performing Organization Address [facility] Phone Number MISYS LB MICROBIOLOGY * CHLAM/GC DNA AMPLI (09/08/2018 12:20 PM KITCHEN AIDE) Chlamydia trach Negative NEG BT DIAGNOSTIC IMMUNOLOGY N gonorrhoeae Negative NEG BT DIAGNOSTIC Comment: IMMUNOLOGY This test utilizes [employer] Aptima Combo 2 Assay for target amplification of rRNA for the qualitative detection of Chlamydia trachomatis and Neisseria gonorrhea. Spec Endovervical [facility] Description MAIN-STATION 2 Specimen Other (Specify in Comments) - Vaginal Swab Performing Organization Address [facility] Phone Number MISYS BT DIAGNOSTIC IMMUNOLOGY [facility] MAIN-STATION 2 after 10/18/2017 Insurance Type Payer Benefit Subscriber ID Effective Phone Address Plan / Dates Group [facility] xxxxxxxxx 2017-[address] [facility] [id number] [place] [address] Advance Directives For more information, please contact: [address] [address] Date Inactivated Comments Code Status Date Activated 01/13/2015 4:30 PM Full Code 01/05/2015 3:18 AM 10/20/2010 5:31 PM Full Code 10/17/2010 1:51 AM 10/17/2010 1:51 AM Full Code 10/16/2010 3:49 PM
--- OUTSIDE RECORDS SUMMARY | 2019-02-28 05:13 | XMS REPORT | Summary of Care ---
Author Author [facility] Address Unknown Phone Unavailable Care Team Providers Care Machine Pecan Picker Name Role Phone CHRISTIANA GLASS M.D. Unavailable Unavailable IDALIA JIMENEZ M.D. Unavailable Unavailable Unavailable Unavailable Functional Status Name Dates Details Functional status health issues are not documented Status: Name Dates Details Cognitive status health issues are not documented Status: Problems Name Dates Details hepatitis C exposure (V01.79, Z20.5) Status: Active Seasonal allergic rhinitis, unspecified trigger (477.9, J30.2) Status: Active Delayed vaccination (V64.00, Z28.9) Status: Active Medications Name Dates Details Cetirizine HCl Allergy Child 5 MG/5ML Oral Solution Take 2.5mL at bedtime as needed for runny nose and sneezing due to allergic rhinitis Quantity: 1 CHRISTIANA GLASS M.D. * Start : 26-Jan-2018 Active 120 ML Bottle Benadryl Allergy Childrens 12.5 MG/5ML Oral Liquid TAKE 2.5 ML Every 6 hours PRN allergies * Quantity: 1 Refills: 1 BARBARA Ruiz, IDALIA * Start : 06-Apr-2018 Active 236 ML Bottle Allergies and Adverse Reactions Name Dates Details No Known Drug Allergies (Allergy) Status: Active Procedures Procedure Dates Details [QLH] LEAD, BLOOD Date: 06-Apr-2018 [QLH] Hemoglobin and Hematocrit Date: 06-Apr-2018 History of No history of surgery Completed Immunization Name Dates Details Hepatitis B vaccine, unspecified formulation on: 28-Mar-2017 ActHIB Intramuscular Solution Reconstituted Lot #: [id number] on: 04-Jul-2017 Prevnar 13 Intramuscular Suspension Lot #: [id number] on: 04-Jul-2017 DTaP, HepB, IPV (Pediarix) Lot #: [id number] on: 04-Jul-2017 Rotavirus (RotaTeq) Lot #: [id number] on: 04-Jul-2017 DTaP, IPV/Hib (Pentacel) Lot #: [id number] on: 05-Aug-2017 Prevnar 13 Intramuscular Suspension Lot #: [id number] on: 05-Aug-2017 Rotavirus (RotaTeq) Lot #: [id number] on: 05-Aug-2017 DTaP, HepB, IPV (Pediarix) Lot #: [id number] on: 26-Jan-2018 ActHIB Intramuscular Solution Reconstituted Lot #: [id number] on: 26-Jan-2018 Prevnar 13 Intramuscular Suspension Lot #: [id number] on: 26-Jan-2018 Flulaval Quadrivalent 0.5 ML Intramuscular Suspension Prefilled Syringe Lot #: [id number] on: 26-Jan-2018 ActHIB Intramuscular Solution Reconstituted Lot #: [id number] on: 06-Apr-2018 Havrix 720 EL U/0.5ML Intramuscular Suspension Lot #: [id number] on: 06-Apr-2018 Prevnar 13 Intramuscular Suspension Lot #: [id number] on: 06-Apr-2018 MMR Lot #: [id number] on: 06-Apr-2018 Varicella Lot #: [id number] on: 06-Apr-2018 Family History Name Dates Details Family history of diabetes mellitus (V18.0, Z83.3) Status: Active Name Dates Details Family history of Hepatitis C, chronic (070.54, B18.2) Status: Active Family history of Hepatitis C virus carrier state (V02.62, B18.2) Status: Active Social History Name Dates Details Unknown if ever smoked Vital Signs Date Test Result Details [id number]-Iup-002986:54 Height 72.1 cm Status: Physical Findings 20 Status: Comments: 0-24 Length Percentile Weight 9.85 kg Status: Body Mass Index Calculated 18.95 kg/m2 Status: Body Surface Area Calculated 0.42 m2 Status: Physical Findings 76 Status: Comments: 0-24 Weight Percentile Temperature 97.6 f Status: Comments: Method: Temporal Head Circumference 45.5 cm Status: Physical Findings 64 Status: Comments: 0-24 Head Circumference Percentile Results Date Description Value Details Results not documented Plan of Care Name Dates Details Planned Observations Planned Goals not documented Planned Medications ActHIB Intramuscular Solution Reconstituted Ordered: 06-Apr-2018 Active Interventions Provided Medication Changes* Benadryl Allergy Childrens 12.5 MG/5ML Oral Liquid - Start Labs/Procedures/Imaging* [QLH] Hemoglobin and Hematocrit; To Be Done: 06 Apr 2018 * [QLH] LEAD, BLOOD; To Be Done: 06 Apr 2018 Medications/Immunizations Administered* ActHIB Intramuscular Solution Reconstituted; Done: 06 Apr 2018 * Havrix 720 EL U/0.5ML Intramuscular Suspension; Done: 06 Apr 2018 * MMR; Done: 06 Apr 2018 * Prevnar 13 Intramuscular Suspension; Done: 06 Apr 2018 * Varicella; Done: 06 Apr 2018 Plan* 12 Month Checkup - The following items were reviewed * Lead risk assessment. * Begin weaning from bottle/breast to cup. * Discipline constructively using time-out for 1 minute/year of age. * Encourage supervised outdoor play. * Establish consistent limits/rules and consistent consequences. * Limit TV time to 1-2 hours/day. * Praise good behavior. * Promote language using simple words. * Provide age-appropriate toys. * Provide favorite toy for self-soothing during sleep time. * Read books and talk about pictures/story using simple words. * Use distraction or choice of 2 appropriate options to avoid/resolve conflicts. * Make 1:1 time for each child in family. * No bottle in bed. * Provide nutritious 3 meals and 2 snacks; limit sweets/high-fat foods. * Home safety for fire/carbon monoxide poisoning, stair/window ruiz, electrical outlet covers, cleaning supplies, and medicines out of reach. * Provide safe/quality day care, if needed. * Supervise within arms length when near water/do not leave alone in bath water. * Use of front-facing car seat in back seat of car if >20 pounds. * Establish consistent bedtime routine. * Establish routine and assist with tooth brushing with soft brush twice a day. * Maintain consistent family routine. * Provide nap time daily. * [place] is a well 12mo girl with allergic rhinitis and Hepatitis C exposure. * 1. Health maintenance * - Receiving 12mo vaccines (except DTap) * - Obtain lead, H/H * - TB questionnaire performed * 2. Delayed vaccination * - Will not receive DTap today as last one was done at 10mo * 3. Allergic rhinitis * - Prescribed benadryl for breakthrough allergic symptoms * RTC for 15mo WCC. Discussion/Summary* Impression: no growth concerns. no developmental concerns. * Information discussed with mother. * Educational Materials: Reach Out and Read. * TB Questionnaire completed and passed. Instructions Name Dates Details Instructions not documented Encounters Appointment; TOMAJ, EDWINA, M.D. Encounter Diagnosis: Problem not documented On: 28-Carlos-2017 12:45 Appointment; LILIBETH MCCAULEY M.D. Encounter Diagnosis: Problem not documented On: 11-Apr-2017 12:45 Appointment; PORTER MILLER M.D. Encounter Diagnosis: Problem not documented On: 04-Jul-2017 14:00 Appointment; SEB MORENO M.D. Encounter Diagnosis: Problem not documented On: 05-Aug-2017 14:05 Appointment; JOSUÉ LANTIGUA M.D. Encounter Diagnosis: Problem not documented On: 24-Nov-2017 8:45 Appointment; CHRISTIANA GLASS M.D. Encounter Diagnosis: Problem not documented On: 26-Jan-2018 13:15 Appointment; CHRISTIANA GLASS M.D. Encounter Diagnosis: Problem not documented On: 06-Apr-2018 10:30
--- OUTSIDE RECORDS SUMMARY | 2019-02-28 05:13 | XMS REPORT ---
Author Author [facility] Address Unknown Phone Unavailable Care Team Providers Care Concrete Pipe Making Machine Operator Name Role Phone Sheryl SANCHEZ Unavailable Unavailable PETE RODRIGUEZ Unavailable Unavailable DUKE BUSTOS Unavailable Unavailable Problems This patient has no known problems. Allergies, Adverse Reactions, Alerts This patient has no known allergies or adverse reactions. Medications This patient has no known medications. Encounters Start Date/Time End Date/Time Encounter Type Admission Type Attending [facility] Care Department Encounter ID 2019-03-01 00:00:00 2019-03-01 00:00:00 Outpatient [facility] [id number] 2019-02-22 00:00:00 2019-02-22 00:00:00 Outpatient [facility] [id number] 2019-02-16 14:12:39 2019-02-16 14:12:39 Outpatient [facility] [id number] 2019-02-08 08:39:22 2019-02-08 08:39:22 Outpatient [facility] [id number] 2019-02-08 08:10:03 2019-02-08 08:10:03 Outpatient [facility] [id number] 2019-02-07 00:00:00 2019-02-07 00:00:00 Outpatient [facility] [id number] 2019-01-24 08:18:49 2019-01-24 08:18:49 Outpatient [facility] [id number] 2018-10-05 00:00:00 2018-10-05 00:00:00 Outpatient [facility] [id number] 2018-09-08 11:02:35 2018-09-08 11:02:35 Outpatient [facility] [id number] 2018-04-27 10:09:49 2018-04-27 10:09:49 Outpatient [facility] [id number] 2017-12-29 14:29:51 2017-12-29 14:29:51 Outpatient [facility] [id number] 2017-12-15 00:00:00 2017-12-15 00:00:00 Outpatient [facility] [id number] 2017-10-13 14:35:40 2017-10-13 14:35:40 Outpatient [facility] [id number] 2017-10-11 00:00:00 2017-10-11 00:00:00 Outpatient [facility] [id number] 2017-10-03 00:00:00 2017-10-03 00:00:00 Outpatient [facility] [id number] 2017-08-19 00:00:00 2017-08-19 00:00:00 Outpatient [facility] [id number] 2017-07-18 00:00:00 2017-07-18 00:00:00 Outpatient [facility] [id number] 2017-06-30 00:00:00 2017-06-30 00:00:00 Outpatient [facility] [id number] Results Test Description Test Time Test Comments Text Results Atomic Results Result Comments CHEST 2 VIEWS 2019-02-26 16:04:00 [place] [address] Patient Name: HELEN MANUEL MR #: [id number] : 1975 Age/Sex: 43/F Req #: [id number] Adm Physician: Ordered by: Sheryl SANCHEZ DPBill Report #: [id number] Location: OR Room/Bed: Procedure: [id number] DX/CHEST 2 VIEWS Exam Date: 02/26/19 Exam Time: 1550 REPORT STATUS: Signed EXAMINATION: PA and lateral views of the chest. COMPARISON: None CLINICAL HISTORY: Preoperative study for toe surgery DISCUSSION: Lines/tubes: None. Lungs: The lungs are well inflated and clear. There is no evidence of pneumonia or pulmonary edema. Pleura: There is no pleural effusion or pneumothorax. Heart and mediastinum: The cardiomediastinal silhouette is normal. Bones and soft tissues: No acute bony abnormalities. Mild scoliotic curvature of the thoracolumbar spine. IMPRESSION: No acute cardiopulmonary abnormalities. Signed by: Dr. Sweta Arthur M.D. on 02/26/2019 4:06 PM Dictated By: SWETA ARTHUR MD 1606 Transcribed By: COMFORT on 02/26/19 1606 COPY TO: Sheryl SANCHEZ DPM HEPATITIS C PCR, QUANTITATIVE 2017-05-05 15:03:00 HCV NUMERIC RESULT (BEAKER) (test oowi=9575) 399232 IU/mL <15 This test uses a Real-Time Polymerase Chain Reaction (RT-PCR) methodology and wa s performed using VENUS Ampliprep/VENUS TaqMan HCV test kit version 2.0 ([employer]).Reportable range for this assay is 15 - 100,000,000 IU per mL (1.18 - 8.00 Log IU/mL).CBC W/PLT COUNT & AUTO [id number] 16:15:00* Test Item Value Reference Range Comments WHITE BLOOD CELL COUNT (BEAKER) (test mhsi=220) 4.6 K/ L 3.5-10.5 RED BLOOD CELL COUNT (BEAKER) (test uvcd=959) 4.39 M/ L 3.93-5.22 HEMOGLOBIN (BEAKER) (test lgst=705) 13.0 GM/DL 11.2-15.7 HEMATOCRIT (BEAKER) (test pjbh=317) 39.9 % 34.1-44.9 MEAN CORPUSCULAR VOLUME (BEAKER) (test sneh=880) 90.9 fL 79.4-94.8 MEAN CORPUSCULAR HEMOGLOBIN (BEAKER) (test accn=961) 29.6 pg 25.6-32.2 MEAN CORPUSCULAR HEMOGLOBIN CONC (BEAKER) (test ixbv=813) 32.6 GM/DL 32.2-35.5 RED CELL DISTRIBUTION WIDTH (BEAKER) (test kzcs=508) 13.1 % 11.7-14.4 PLATELET COUNT (BEAKER) (test hqvl=742) 324 K/CU MM 150-450 MEAN PLATELET VOLUME (BEAKER) (test hqnv=857) 10.1 fL 9.4-12.3 NUCLEATED RED BLOOD CELLS (BEAKER) (test wqjm=135) 0 /100 WBC 0-0 NEUTROPHILS RELATIVE PERCENT (BEAKER) (test xltm=316) 34 % LYMPHOCYTES RELATIVE PERCENT (BEAKER) (test irbk=351) 53 % MONOCYTES RELATIVE PERCENT (BEAKER) (test tgva=887) 7 % EOSINOPHILS RELATIVE PERCENT (BEAKER) (test sdwc=104) 5 % BASOPHILS RELATIVE PERCENT (BEAKER) (test dsio=643) 1 % NEUTROPHILS ABSOLUTE COUNT (BEAKER) (test tkpd=494) 1.56 K/ L 1.56-6.13 LYMPHOCYTES ABSOLUTE COUNT (BEAKER) (test pkih=239) 2.40 K/ L 1.18-3.74 MONOCYTES ABSOLUTE COUNT (BEAKER) (test zhbv=091) 0.30 K/ L 0.24-0.36 EOSINOPHILS ABSOLUTE COUNT (BEAKER) (test niub=841) 0.23 K/ L 0.04-0.36 BASOPHILS ABSOLUTE COUNT (BEAKER) (test obsn=612) 0.05 K/ L 0.01-0.08 IMMATURE GRANULOCYTES-RELATIVE PERCENT (BEAKER) (test advh=1831) 0 % 0-1 HEPATITIS B SURFACE [id number] 15:08:00* Test Item Value Reference Range Comments HEPATITIS B SURFACE ANTIBODY (BEAKER) (test fwpb=499) < mIU/mL <8.0 HEPATITIS B SURFACE [id number] 14:19:00* Test Item Value Reference Range Comments HEPATITIS B SURFACE ANTIGEN (2) (BEAKER) (test vgrb=0732) Nonreactive Nonreactive HEPATITIS B CORE ANTIBODY, [id number] 14:19:00* Test Item Value Reference Range Comments HEPATITIS B CORE TOTAL ANTIBODY (BEAKER) (test vnux=302) Nonreactive Nonreactive ALPHA FETOPROTEIN (AFP), TUMOR [id number] 13:35:00* Test Item Value Reference Range Comments ALPHA-FETOPROTEIN (BEAKER) (test tqfd=3106) < ng/mL <10.0 Effective 07/23/2014: Reference Range ChangeNew: <10.0 Previous: 0.0-8.0 [id number] 13:34:00* Test Item Value Reference Range Comments FERRITIN (BEAKER) (test vkka=907) 52 ng/mL 5-275 Effective 07/23/2014: Reference Range ChangeNew: Male 5-275 Previous: Male 22-322 Female 5-275 Female 10-291 HEPATIC FUNCTION PANEL 2017-04-29 13:01:00* Test Item Value Reference Range Comments TOTAL PROTEIN (BEAKER) (test hurh=065) 7.0 gm/dL 6.0-8.3 ALBUMIN (BEAKER) (test ngxi=0846) 3.6 g/dL 3.5-5.0 BILIRUBIN TOTAL (BEAKER) (test bzmt=215) 0.3 mg/dL 0.2-1.2 BILIRUBIN DIRECT (BEAKER) (test jbuq=401) 0.1 mg/dL 0.1-0.5 ALKALINE PHOSPHATASE (BEAKER) (test ozup=089) 113 U/L 40-150 AST (SGOT) (BEAKER) (test vaev=383) 43 U/L 5-34 ALT (SGPT) (BEAKER) (test yjxz=543) 53 U/L 6-55 BASIC METABOLIC [id number] 13:01:00* Test Item Value Reference Range Comments SODIUM (BEAKER) (test lhja=024) 142 meq/L 136-145 POTASSIUM (BEAKER) (test hnfc=103) 3.9 meq/L 3.5-5.1 CHLORIDE (BEAKER) (test uxhm=257) 112 meq/L 98-107 CO2 (BEAKER) (test bzjx=346) 21 meq/L 22-29 BLOOD UREA NITROGEN (BEAKER) (test scwm=765) 19 mg/dL 7-21 CREATININE (BEAKER) (test aumh=235) 0.83 mg/dL 0.57-1.25 GLUCOSE RANDOM (BEAKER) (test osbz=998) 82 mg/dL 70-105 CALCIUM (BEAKER) (test lbvz=714) 8.4 mg/dL 8.4-10.2 EGFR (BEAKER) (test ffca=0867) 92 mL/min/1.73 sq m ESTIMATED GFR IS NOT ACCURATE CREATININE CLEARANCE IN PREDICTING GLOMERULAR FILTRATION RATE. ESTIMATED GFR IS NOT APPLICABLE FOR DIALYSIS PATIENTS. GAMMA GLUTAMYL TRANSFERASE (GGT)2017-04-29 13:01:00* Test Item Value Reference Range Comments GAMMA GLUTAMYL TRANSFERASE (BEAKER) (test iynv=674) 35 U/L 9-64 RAPID DRUG SCREEN, [id number] 12:59:00* Test Item Value Reference Range Comments BARBITURATE URINE (BEAKER) (test zjtz=972) Negative Negative BENZODIAZEPINE SCREEN URINE (BEAKER) (test wsky=394) Negative Negative COCAINE (METAB.) SCREEN (BEAKER) (test jeni=8898) Negative Negative METHADONE SCREEN (BEAKER) (test hdua=3377) Negative Negative OPIATE SCREEN URINE (BEAKER) (test ncug=657) Negative Negative CANNABINOID SCREEN URINE (BEAKER) (test pwid=479) Negative Negative AMPH/METHAMPH SCREEN (BEAKER) (test exho=9917) Negative Negative PHENCYCLIDINE SCREEN URINE (BEAKER) (test oxav=520) Negative Negative OXYCODONE SCREEN URINE (BEAKER) (test dtxw=5404) Negative Negative DRUG CUTOFF CONC.Cocaine 300 ng/mL Cannabinoid 50 ng/mL Benzodiazepine 200 ng/mLBarbiturate 200 ng/mLPh encyclidine 25 ng/mLOpiate 300 ng/mLMethadone 300 ng/mLAmphetamine/ 1000 ng/mL MethamphetamineOxycodone 300 ng/mLThis assay provides an unconfirmed qualitative test result for the cli nical management of patients in emergency situations. Chain of custody not maint ained. Some ktho-hax-serberg medications, as well as adulterants, may cause inac curate results. Clinical correlation should be applied. A more comprehensive amanda g screen or confirmation of a detected drug may be performed upon request. [id number] 12:59:00* Test Item Value Reference Range Comments ETHANOL (BEAKER) (test clec=297) < mg/dL <=10 SCREEN, [id number] 12:21:00* Test Item Value Reference Range Comments TEST URINE (BEAKER) (test xxgl=781) Negative PROTHROMBIN TIME/[id number] 12:19:00* Test Item Value Reference Range Comments PROTIME (BEAKER) (test xsig=736) 12.8 seconds 11.7-14.7 INR (BEAKER) (test ccov=812) 1.0 <=5.9 RECOMMENDED COUMADIN/WARFARIN INR THERAPY RANGESSTANDARD DOSE: 2.0 - 3.0 Inclu sidney: PROPHYLAXIS for venous thrombosis, systemic embolization; TREATMENT for ivelisse ous thrombosis and/or pulmonary embolus.HIGH RISK: Target INR is 2.5-3.5 for pat ients with mechanical heart valves.MISCELLANEOUS LAB [id number] 10:30:00* Test Item Value Reference Range Comments SCAN RESULT (test kzzl=[id number]) MISCELLANEOUS LAB [id number] 10:54:00* Test Item Value Reference Range Comments SCAN RESULT (test hztj=7018927) TOXICOLOGY SCREEN, [id number] 10:10:00* Test Item Value Reference Range Comments SCAN RESULT (test xfal=7395762) [id number] 14:47:00* Test Item Value Reference Range Comments ETHANOL (BEAKER) (test imkd=903) < mg/dL <=10 HEPATITIS C PCR, [id number] 14:46:00* Test Item Value Reference Range Comments HCV NUMERIC RESULT (BEAKER) (test suop=8439) 907654 IU/mL <15 This test uses a Real-Time Polymerase Chain Reaction (RT-PCR) methodology and wa s performed using VENUS Ampliprep/VENUS TaqMan HCV test kit version 2.0 ([employer]).Reportable range for this assay is 15 - 100,000,000 IU per mL (1.18 - 8.00 Log IU/mL).ANTI-NUCLEAR ANTIBODY (TRIXIE)2016-11-25 14:02:00* Test Item Value Reference Range Comments ANTI-NUCLEAR ANTIBODY (TRIXIE) (BEAKER) (test acwm=490) Negative Negative [id number] 16:30:00* Test Item Value Reference Range Comments FERRITIN (BEAKER) (test pqau=896) 28 ng/mL 5-275 Effective 07/23/2014: Reference Range ChangeNew: Male 5-275 Previous: Male 22-322 Female 5-275 Female 10-291 HEPATITIS A ANTIBODY, IGG 2016-11-24 16:27:00* Test Item Value Reference Range Comments HEPATITIS A IGG ANTIBODY (BEAKER) (test qvmv=6451) Nonreactive Nonreactive ALPHA FETOPROTEIN (AFP), TUMOR [id number] 15:55:00* Test Item Value Reference Range Comments ALPHA-FETOPROTEIN (BEAKER) (test chzm=9164) 51.9 ng/mL <10.0 Effective 07/23/2014: Reference Range ChangeNew: <10.0 Previous: 0.0-8.0 HEPATITIS A ANTIBODY, [id number] 15:55:00* Test Item Value Reference Range Comments HEPATITIS A IGM ANTIBODY (BEAKER) (test keod=724) Nonreactive Nonreactive HEPATITIS B CORE ANTIBODY, [id number] 15:55:00* Test Item Value Reference Range Comments HEPATITIS B CORE TOTAL ANTIBODY (BEAKER) (test ljca=759) Nonreactive Nonreactive HEPATITIS B SURFACE [id number] 15:52:00* Test Item Value Reference Range Comments HEPATITIS B SURFACE ANTIBODY (BEAKER) (test wzes=792) < mIU/mL <8.0 HEPATITIS B SURFACE [id number] 15:51:00* Test Item Value Reference Range Comments HEPATITIS B SURFACE ANTIGEN (2) (BEAKER) (test jxkp=5509) Nonreactive Nonreactive IRON, TIBC, % SAT. (WITHOUT FERRITIN)2016-11-24 15:45:00* Test Item Value Reference Range Comments IRON (BEAKER) (test cqli=808) 129 ug/dL 40-160 TOTAL IRON BINDING CAPACITY (BEAKER) (test edpp=987) 410 ug/dL 250-450 IRON % SATURATION (2) (BEAKER) (test qnsu=0092) 31 % 20-55 COMPREHENSIVE METABOLIC [id number] 15:41:00* Test Item Value Reference Range Comments TOTAL PROTEIN (BEAKER) (test dftz=497) 6.2 gm/dL 6.0-8.3 ALBUMIN (BEAKER) (test izlo=8930) 3.1 g/dL 3.5-5.0 ALKALINE PHOSPHATASE (BEAKER) (test otxr=182) 54 U/L 40-150 BILIRUBIN TOTAL (BEAKER) (test eomc=443) 0.2 mg/dL 0.2-1.2 SODIUM (BEAKER) (test bmsr=379) 138 meq/L 136-145 POTASSIUM (BEAKER) (test mipz=387) 3.6 meq/L 3.5-5.1 CHLORIDE (BEAKER) (test fzxh=677) 107 meq/L 98-107 CO2 (BEAKER) (test ujbs=145) 22 meq/L 22-29 BLOOD UREA NITROGEN (BEAKER) (test jdqk=081) 12 mg/dL 7-21 CREATININE (BEAKER) (test yryn=861) 0.66 mg/dL 0.57-1.25 GLUCOSE RANDOM (BEAKER) (test tbgl=449) 72 mg/dL 70-105 CALCIUM (BEAKER) (test gnha=237) 8.3 mg/dL 8.4-10.2 AST (SGOT) (BEAKER) (test jhwx=234) 16 U/L 5-34 ALT (SGPT) (BEAKER) (test ssgz=985) 18 U/L 6-55 EGFR (BEAKER) (test rhsp=8899) 121 mL/min/1.73 sq m ESTIMATED GFR IS NOT ACCURATE CREATININE CLEARANCE IN PREDICTING GLOMERULAR FILTRATION RATE. ESTIMATED GFR IS NOT APPLICABLE FOR DIALYSIS PATIENTS. BILIRUBIN, [id number] 15:39:00* Test Item Value Reference Range Comments BILIRUBIN DIRECT (BEAKER) (test jjnl=979) 0.1 mg/dL 0.1-0.5 PROTHROMBIN TIME/[id number] 15:21:00* Test Item Value Reference Range Comments PROTIME (BEAKER) (test dkau=220) 12.9 seconds 11.7-14.7 INR (BEAKER) (test rgsm=670) 1.0 <=5.9 RECOMMENDED COUMADIN/WARFARIN INR THERAPY RANGESSTANDARD DOSE: 2.0 - 3.0 Inclu sidney: PROPHYLAXIS for venous thrombosis, systemic embolization; TREATMENT for ivelisse ous thrombosis and/or pulmonary embolus.HIGH RISK: Target INR is 2.5-3.5 for pat ients with mechanical heart valves.CBC W/PLT COUNT & AUTO [id number] 15:08:00* Test Item Value Reference Range Comments WHITE BLOOD CELL COUNT (BEAKER) (test icgk=386) 7.0 K/ L 4.0-10.0 RED BLOOD CELL COUNT (BEAKER) (test pvmj=135) 3.54 M/ L 4.00-5.00 HEMOGLOBIN (BEAKER) (test prtq=551) 11.6 GM/DL 12.0-15.0 HEMATOCRIT (BEAKER) (test rkcl=458) 34.2 % 36.0-45.0 MEAN CORPUSCULAR VOLUME (BEAKER) (test jkte=622) 96.7 fL 82.0-99.0 MEAN CORPUSCULAR HEMOGLOBIN (BEAKER) (test xnxi=527) 32.9 pg 27.0-33.0 MEAN CORPUSCULAR HEMOGLOBIN CONC (BEAKER) (test amyl=822) 34.0 GM/DL 32.0-36.0 RED CELL DISTRIBUTION WIDTH (BEAKER) (test rgmq=471) 12.4 % 10.3-14.2 PLATELET COUNT (BEAKER) (test jjvu=498) 287 K/CU MM 150-430 MEAN PLATELET VOLUME (BEAKER) (test syxc=026) 7.5 fL 6.5-10.5 NUCLEATED RED BLOOD CELLS (BEAKER) (test dyyw=171) 0 /100 WBC 0-0 NEUTROPHILS RELATIVE PERCENT (BEAKER) (test yjph=180) 64 % LYMPHOCYTES RELATIVE PERCENT (BEAKER) (test fqtf=545) 28 % MONOCYTES RELATIVE PERCENT (BEAKER) (test hfxu=396) 6 % EOSINOPHILS RELATIVE PERCENT (BEAKER) (test fric=601) 2 % BASOPHILS RELATIVE PERCENT (BEAKER) (test pmjp=683) 1 % NEUTROPHILS ABSOLUTE COUNT (BEAKER) (test xbbm=759) 4.42 K/ L 1.80-8.00 LYMPHOCYTES ABSOLUTE COUNT (BEAKER) (test mefa=080) 1.96 K/ L 1.48-4.50 MONOCYTES ABSOLUTE COUNT (BEAKER) (test tydg=639) 0.39 K/ L 0.00-1.30 EOSINOPHILS ABSOLUTE COUNT (BEAKER) (test wxll=386) 0.12 K/ L 0.00-0.50 BASOPHILS ABSOLUTE COUNT (BEAKER) (test kujv=976) 0.05 K/ L 0.00-0.20 0.00
--- OUTSIDE RECORDS SUMMARY | 2019-02-28 05:13 | XMS REPORT | Summary of Care ---
Author Author GABRIEL Ruiz, [employer] Organization Unknown Address Unknown Phone Unavailable Care Team Providers Care Rock Lather Name Role Phone JUNIOR SNADERS M.D. 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) Status: Active Hepatitis C (070.70, B19.20) Status: Active History of syphilis (V12.09, Z86.19) Status: Active exam (V24.2, Z39.2) Status: Active Medications Name Dates Details Medications not documented Allergies and Adverse Reactions Name Dates Details No Known Allergies (Allergy) Status: Active Procedures Procedure Dates Details Procedures not documented Immunization Name Dates Details Tdap (Adacel) #1 Lot #: [id number] on: 04-Jan-2017 Social History Name Dates Details - Status: Name Dates Details Never smoker Vital Signs Date Test Result Details No Known Vitals to report Results Date Description Value Details Results not documented Plan of Care Name Dates Details Planned Observations Planned Goals not documented Interventions Provided Labs/Procedures/Imaging* [QLH] CBC (INCLUDES DIFF/PLT); Done: 04 Jan 2017 * [QLH] GLUCOSE, GESTATIONAL SCREEN (50G)-130 CUTOFF; Done: 04 Jan 2017 Instructions Name Dates Details Instructions not documented Encounters Appointment; PRIYANKA FELLOW2 Encounter Diagnosis: Problem not documented On: 02-Dec-2016 8:00
[2019-02-28 08:15] VITALS: BP 126/83
--- NOTE | 2019-03-04 17:58 | Operative Report ---
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 POSTOPERATIVE DIAGNOSES: Hammertoe fifth digit, left; interphalangeal sesamoid, left and an exostosis, medial aspect of the right first toe. OPERATIVE PROCEDURE: An arthroplasty of fifth digit, left; excision of interphalangeal sesamoid, left and an exostectomy of first, left. DESCRIPTION OF PROCEDURE: The patient was placed on the OR table in the supine position. The left lower extremity was prepped and draped in the usual manner. A general anesthetic was administered and hemostasis accomplished using a pneumatic cuff set at 350 mmHg at thigh level. Procedure #1: Arthroplasty of fifth digit: Two semi-elliptical incisions were made on the dorsal aspect of the fifth left toe. The enclosed skin was removed in total. This exposed the proximal interphalangeal joint, which was then opened from medial to lateral and the collateral ligaments were cut. At this time, the head of the proximal phalanx was removed with a power saw. The wound was then flushed with sterile saline solution. The long extensor tendon was reapproximated with 3-0 Vicryl and the skin was then closed with 4-0 nylon. Procedure #2: Excision of interphalangeal sesamoid, left: An incision approximately 2 cm in length was made on the medial aspect of the proximal interphalangeal joint of the left hallux. The incision was deepened and extended beneath the capsule of the joint. At this time, the toe was plantar flexed, which allowed visualization of the interphalangeal sesamoid. The sesamoid was then removed, intact. The long flexor tendon was noted to still be intact. At this time, the incision was extended distally along the medial aspect of the distal phalanx of the left hallux. Soft tissue was dissected away from the medial aspect. Using a [address] [place], the exostosis on the medial aspect was removed. The wound was then flushed with sterile saline solution. The subcutaneous tissue and capsule were closed with 3-0 Vicryl and the skin with 4-0 nylon. Following the procedure, 9 mL of 0.5% Marcaine and 1 mL of Decadron were injected. A sterile compression dressing was then applied. At this time, the pneumatic cuff was released and a reflex hyperemia was observed to all digits. The patient tolerated the procedures and anesthesia well and left the OR to recovery in good condition with vital signs stable. S IVY Alvarez (Charley)/CARLYLE /[id number] SABRINA
== END | disposition home or self-care (01) ==
LOC: OR 05:00
PROVIDERS: ATTEND Podiatrist Foot & Ankle Surgery
DX: M20.42 Other hammer toe(s) (acquired), left foot (principal); M89.8X7 Other specified disorders of bone, ankle and foot; S82.892A Other fracture of left lower leg, initial encounter for closed fracture; F31.9 Bipolar disorder, unspecified; F17.210 Nicotine dependence, cigarettes, uncomplicated; Z01.810 Encounter for preprocedural cardiovascular examination; Z01.818 Encounter for other preprocedural examination
CPT/HCPCS: 28108; 28285; 28315; 71046; 81025; 93005; J0690; J1100; J2001; J2250; J2405; J2704; J3010